=== PATIENT | male | born 1950 | race Caucasian/White ===

== ENCOUNTER 2017-01-02 23:31 | Emergency (ER) | payer OTHER ==
[2017-01-02] MEDS ORDERED: solu-MEDROL 125 MG IV ONE (23:37)
[2017-01-02] MEDS ORDERED: PROVENTIL 2.5 MG/3 ML NEB IH ONE ×2 (23:37→23:58)
[2017-01-02] MEDS ORDERED: solu-MEDROL 125 MG ONE (23:41)
[2017-01-02] MEDS ORDERED: Sodium Chloride 0.9% 1000 ML 1,000 ML ONE (23:41)
--- NOTE | 2017-01-02 23:44 | ERPHSYRPT ---
- History of Present Illness Time Seen by Provider: 01/02/17 23:34 Source: patient, EMS Exam Limitations: clinical condition Physician History: This is a 66-year-old white male with history of COPD, pneumonia, hyperlipidemia , chronic back pain. He is brought by medics in moderate respiratory distress he has CPAP started by medics and he was changed to BiPAP by our respiratory patient has diminished breath sounds and appears to be quite short of breath. He states he's been short of breath for 2-3 days he has no fevers has been coughing yellow sputum no vomiting. Past medical history includes COPD, pneumonia, hyperlipidemia, chronic back pain , Past surgical history includes hemorrhoids. ' Timing/Duration: day(s) (2-3 days) Severity of Dyspnea-Max: moderate Severity of Dyspnea-Current: moderate Possible Cause: frequent episodes Modifying Factors: Improves With: nothing, other (patient given DuoNeb treatment andslbuterol treatment by medics) Associated Symptoms: constant, cough, wheezing, weakness, productive cough, No chest pain/discomfort, No edema, No fever, No insomnia, No loss of appetite, No lightheadedness, No ankle swelling, No chills, No hemoptysis, No calf pain, No dizziness, No heaviness, No heart racing, No lightheadedness, No leg swelling, No muscle spasms feet, No muscle spasms hands, No painful breathing, No sweating , No tightness, No tingling face, No tingling hands Allergies/Adverse Reactions: No Known Drug Allergies Allergy (Verified 01/26/16 12:56) Home Medications: Albuterol 2.5 mg/3 ml Neb [Proventil 2.5 mg/3 ml Neb] 1 vial IH Q6H [History] Alendronate Sodium 70 mg [Fosamax 70 MG] 70 mg PO WEEKLY 11/28/14 [History ] Fluticasone/Vilanterol [Breo Ellipta 100-25 Mcg INH] 1 puff IH DAILY 11/28/14 [ History] Hydrocodone/APAP 10/325 mg [Homer 10/325 MG Tablet] 1 tab PO Q4H PRN PRN 11/28/14 [History] Ipratropium/Albuterol Sulfate [Combivent Inhaler] 2 puffs IH BID 11/28/14 [ History] Prednisone 10 mg [Deltasone 10 mg] 10 mg PO DAILY 11/28/14 [History] Roflumilast [Daliresp] 500 mcg PO DAILY 11/28/14 [History] Aspirin 81 mg DAILY 01/26/16 [History] Atorvastatin Calcium 80 mg DAILY 01/26/16 [History] Carvedilol 12.5 mg [Coreg 12.5 mg] 12.5 mg BID 01/26/16 [History] Clopidogrel Bisulfate 75 mg [PLAVIX 75 MG Tablet] 75 mg DAILY 01/26/16 [ History] PANTOPRAZOLE 40 mg Tablet [Protonix 40MG Tablet] 40 mg DAILY 01/26/16 [ History] Ramipril 5 mg [Altace 5 MG] 5 mg DAILY 01/26/16 [History] Hx Influenza Vaccination/Date Given: Yes Hx Pneumococcal Vaccination/Date Given: Yes - Review of Systems Constitutional: No Fever, No Chills Eyes: No Symptoms Ears, Nose, & Throat: No Symptoms Respiratory: Cough, Dyspnea, Wheezing Cardiac: No Chest Pain, No Edema, No Syncope Abdominal/Gastrointestinal: No Abdominal Pain, No Nausea, No Vomiting, No Diarrhea Genitourinary Symptoms: No Dysuria Musculoskeletal: No Back Pain, No Neck Pain Skin: No Symptoms Neurological: No Dizziness, No Focal Weakness, No Sensory Changes Psychological: No Symptoms Endocrine: No Symptoms All Other Systems: Reviewed and Negative - Past Medical History Pertinent Past Medical History: Yes Neurological History: No Pertinent History ENT History: No Pertinent History Cardiac History: High Cholesterol Respiratory History: COPD, Pneumonia Endocrine Medical History: No Pertinent History Musculoskeletal History: No Pertinent History GI Medical History: No Pertinent History History: No Pertinent History Psycho-Social History: No Pertinent History Male Reproductive Disorders: No Pertinent History Other Medical History: CHRONIC BACK PAIN - Past Surgical History Past Surgical History: Yes Gastrointestinal: Hemorrhoidectomy - Social History Smoking Status: Former smoker Exposure to second hand smoke: Yes (OCC) Drug Use: none Patient Lives Alone: No - Nursing Vital Signs Nursing Vital Signs: Initial Vital Signs Temperature 97.1 F Temperature Source Axillary Pulse Rate 102 Respiratory Rate 22 Blood Pressure [] 91/58 - Physical Exam General Appearance: moderate distress, other (well-developed white male week moderate distress) Eye Exam: PERRL/EOMI Ears, Nose, Throat Exam: hearing grossly normal, normal ENT inspection, normal pharynx Neck Exam: normal inspection, supple Respiratory Exam: diminished breath sounds Cardiovascular/Chest Exam: normal heart sounds, regular rate/rhythm, tachycardia Abdominal/Gastrointestinal Exam: soft, No tenderness, No distention, No mass Extremity Exam: non-tender, normal range of motion, normal inspection, no calf tenderness, no pedal edema Peripheral Pulses Exam: dorsalis-pedis (R): 2+, dorsalis-pedis (L): 2+ Neurologic Exam: alert, oriented x 3, cooperative, tie layer II-XII nml as tested, sensation nml, No motor deficits Skin Exam: normal color, warm, No dry SpO2 Interpretation: borderline oxygenation (99 on 100% also% on 100% oh with his) - Course Nursing assessment & vital signs reviewed: Yes EKG Interpreted by Me: RATE (106 bpm), Sinus Tach, Other (EKG, sinus tachycardia with large amount of artifact 106 beats per minute, normal axis no acute ST or T wave changes) - Radiology Exams Chest X-ray Interpretation: Interpreted by me, Other (chest x-ray left upper lobe infiltrate, pneumonia.) - CT Exams Abdomen/Pelvis CT Interpretation: Tele-radiologist Report, Other (CT of the abdomen and pelvis : 1. CT findings most consisten with central lobular emphysema with. As discussed tuberculosis should be considered in the differential diagnosis. Recommend follow-up to resolution. 2 no pulmonary embolism 31.4 cm indeterminate left adrenal nodule (x-ray included abdomen and chest with contrast)) Ordered Tests: Active Orders 24 hr Category Date Time Status Animal Feeder STAT Care 01/02/17 23:37 Completed EKG-ER Only STAT Care 01/02/17 23:39 Active Proctor [Catheter-[place] Proctor] STAT Care 01/03/17 04:05 Active IV Insertion STAT Care 01/02/17 23:37 Completed IV Insertion-2nd Peripheral STAT Care 01/02/17 23:47 Active ABDOMEN AND PELVIS W CONTRAST [CT] Stat Exams 01/03/17 01:21 Taken CHEST 1 VIEW (PORTABLE) Stat Exams 01/02/17 23:37 Taken CHEST WITH CONTRAST [CT] Stat Exams 01/03/17 00:45 Taken ARTERIAL BLOOD GASES Urgent Lab 01/02/17 23:45 Completed BLOOD CULTURE Stat Lab 01/02/17 23:56 Stop Req CBC W DIFF Stat Lab 01/02/17 23:55 Completed CMP Stat Lab 01/02/17 23:55 Completed CULTURE,URINE Stat Lab 01/03/17 01:54 Received D-DIMER QUANTITATION Stat Lab 01/02/17 23:55 Completed Lactic Acid Urgent Lab 01/02/17 23:45 Completed Manual Differential NC Stat Lab 01/02/17 23:55 Completed NT PRO BNP Stat Lab 01/02/17 23:55 Completed TROPONIN Stat Lab 01/02/17 23:55 Completed UA W/ MICROSCOPIC Stat Lab 01/03/17 01:54 Completed BiPap/CPAP Assessment ROUTINE RT 01/02/17 23:37 Completed Respiratory Nebulizer STAT RT 01/02/17 23:38 Completed Respiratory Nebulizer STAT RT 01/03/17 03:24 Completed Medication Summary Generic Name Dose Route Start Last Admin Trade Name Freq PRN Reason Stop Dose Admin Dopamine HCl/Dextrose 250 mls @ 01/03/17 02:33 Dopamine 400 Mg/D5w 250ml Premix IV 02/02/17 02:32 .Q0M PRN SEVERE HYPOTENSION Protocol 5 MCG/KG/MIN Discontinued Medications Generic Name Dose Route Start Last Admin Trade Name Freq PRN Reason Stop Dose Admin Albuterol Sulfate 2.5 mg 01/02/17 23:37 01/02/17 23:58 Proventil 2.5 Mg/3 Ml Neb IH 01/02/17 23:38 2.5 mg STAT ONE Administration Albuterol Sulfate Confirm 01/02/17 23:58 Proventil 2.5 Mg/3 Ml Neb Administered 01/02/17 23:59 Dose 2.5 mg IH .STK-MED ONE Albuterol/Ipratropium 3 ml 01/03/17 03:24 01/03/17 03:25 Duoneb 0.5-3 Mg/3 Ml Neb IH 01/03/17 03:25 3 ml STAT ONE Administration Albuterol/Ipratropium Confirm 01/03/17 03:24 Duoneb 0.5-3 Mg/3 Ml Neb Administered 01/03/17 03:25 Dose 3 ml IH .STK-MED ONE Sodium Chloride 1,000 mls @ 100 mls/hr 01/02/17 23:45 01/02/17 23:45 Sodium Chloride 0.9% 1000 Ml IV 02/01/17 23:44 100 mls/hr .Q10H LUCAS Administration Ceftriaxone Sodium/Dextrose 50 mls @ 100 mls/hr 01/03/17 00:41 01/03/17 00:46 Rocephin 1 Gm-D5w 50 Ml Bag IV 01/03/17 01:10 100 mls/hr STAT ONE Administration Ceftriaxone Sodium/Dextrose Confirm 01/03/17 00:43 Rocephin 1 Gm-D5w 50 Ml Bag Administered 01/03/17 00:44 Dose 50 mls @ ud IV .STK-MED ONE Dopamine HCl/Dextrose 250 mls @ 01/03/17 02:22 Dopamine 400 Mg/D5w 250ml Premix IV 02/02/17 02:21 .Q0M PRN SEVERE HYPOTENSION Protocol 5 MCG/KG/MIN Sodium Chloride 1,000 mls @ 100 mls/hr 01/03/17 02:45 Sodium Chloride 0.9% 1000 Ml IV 02/02/17 02:44 .Q10H LUCAS Dopamine HCl/Dextrose Confirm 01/03/17 02:26 Dopamine 400 Mg/D5w 250ml Premix Administered 01/03/17 02:27 Dose 250 mls @ ud IV .STK-MED ONE Sodium Chloride 500 mls @ 999 mls/hr 01/03/17 02:32 01/03/17 02:59 Sodium Chloride 0.9% 1000 Ml IV 01/03/17 03:02 999 mls/hr .Q31M STA Administration Sodium Chloride Confirm 01/02/17 23:41 Sodium Chloride 0.9% 1000 Ml Administered 01/02/17 23:42 Dose 1,000 mls @ ud .ROUTE .STK-MED ONE Sodium Chloride Confirm 01/03/17 02:58 Sodium Chloride 0.9% 1000 Ml Administered 01/03/17 02:59 Dose 1,000 mls @ ud .ROUTE .STK-MED ONE Methylprednisolone Sodium Succinate 125 mg 01/02/17 23:37 01/02/17 23:45 Solu-Medrol 125 Mg IV 01/02/17 23:38 125 mg STAT ONE Administration Methylprednisolone Sodium Succinate Confirm 01/02/17 23:41 Solu-Medrol 125 Mg Administered 01/02/17 23:42 Dose 125 mg .ROUTE .STK-MED ONE Lab/Rad Data: Laboratory Result Diagrams 01/02/17 23:55 01/02/17 23:55 Laboratory Results 01/03/17 01/02/17 01/02/17 Range/Units 01:54 23:55 23:55 WBC (4.0-10.5) K/mm3 RBC (4.1-5.6) M/mm3 Hgb (12.5-18.0) gm/dl Hct (42-50) % MCV (78-100) fl MCH (26-32) pg MCHC (32-36) g/dl RDW (11.5-14.0) % Plt Count (150-450) K/mm3 MPV (6-9.5) fl Segmented Neutrophils (36.-66.) % Band Neutrophils (0.0-2.0) % Lymphocytes (Manual) (24-44) % Monocytes (Manual) (0.0-12.0) % Metamyelocytes % Differential Comment Toxic Granulation Dohle Bodies Platelet Estimate (NORMAL) D-Dimer 1.420 H* (0.00-0.49) mg/L Puncture Site pCO2 (35-45) mmHg pO2 (75-100) mmHg Base Excess (-2.0-2.0) O2 Saturation (94-100) g/dF ABG pH (7.35-7.45) ABG HCO3 (22-28) ABG O2 Sat (Measured) (95-100) % Tomas Test A-a Gradient a/A Ratio Hemoglobin Carboxyhemoglobin (0.0-6.9) % THgb Methemoglobin (1.4-1.5) % Potassium 4.3 (3.5-5.1) Temperature C POC O2 Flow Rate % Vent Mode Inspiratory BiPAP Expiratory BiPAP Sodium 140 (136-145) mEq/L Chloride 103 (98-107) mEq/L Carbon Dioxide 25.9 (21-32) mEq/L Anion Gap 15.1 H (5-15) MEQ/L BUN 25 H (9-20) mg/dL Creatinine 1.05 (0.55-1.30) mg/dl Estimated GFR > 60 ML/MIN Glucose 136 H (70-110) MG/DL Lactic Acid (0.4-2.0) Calcium 8.6 (8.5-10.1) mg/dL Total Bilirubin 0.8 (0.2-1.0) mg/dL AST 36 (15-37) U/L ALT 10 L (12-78) U/L Alkaline Phosphatase 203 H (46-116) U/L Troponin I < 0.017 (0.000-0.056) ng/ml NT-Pro-B Natriuret Pep 970 H (0-125) pg/ml Serum Total Protein 7.1 (6.4-8.2) gm/dL Albumin 2.4 L (3.4-5.0) g/dL Ur Collection Type CLEAN CATCH Urine Color DARK YELLOW (YELLOW) Urine Appearance SLIGHTLY CLOUDY (CLEAR) Urine pH 5.5 (5-6) Ur Specific [place] 1.025 (1.005-1.025) Urine Protein 100 (Negative) Urine Glucose (UA) NEGATIVE (NEGATIVE) mg/dL Urine Ketones NEGATIVE (NEGATIVE) Urine Nitrite NEGATIVE (NEGATIVE) Urine Bilirubin SMALL (NEGATIVE) Urine Urobilinogen 4 (0-1) mg/dL Urine WBC (Auto) NEGATIVE (NEGATIVE) Urine RBC (Auto) NEGATIVE (0-5) Indra/ul Urine Microscopic RBC 2-5 (0-2) /HPF Urine Microscopic WBC 5-10 (0-5) /HPF Ur Epithelial Cells MODERATE (FEW) /HPF Urine Bacteria MODERATE (NEGATIVE) /HPF Urine Casts (NEGATIVE) /LPF Hyaline Casts 0-2 (0-2) /LPF Urine Mucus MODERATE (NEGATIVE) /HPF Specimen Received 01/03/17 0200 01/02/17 01/02/17 Range/Units 23:55 23:45 WBC 23.1 H (4.0-10.5) K/mm3 RBC 4.10 (4.1-5.6) M/mm3 Hgb 11.6 L (12.5-18.0) gm/dl Hct 37.4 L (42-50) % MCV 91.2 (78-100) fl MCH 28.2 (26-32) pg MCHC 31.0 L (32-36) g/dl RDW 15.2 H (11.5-14.0) % Plt Count 259 (150-450) K/mm3 MPV 10.7 H (6-9.5) fl Segmented Neutrophils 58 (36.-66.) % Band Neutrophils 37 H (0.0-2.0) % Lymphocytes (Manual) 2 L (24-44) % Monocytes (Manual) 1 (0.0-12.0) % Metamyelocytes 2 % Differential Comment NORMAL Toxic Granulation 1+ Dohle Bodies 2+ Platelet Estimate NORMAL (NORMAL) D-Dimer (0.00-0.49) mg/L Puncture Site RIGHT RADIAL pCO2 57 H (35-45) mmHg pO2 307 H* (75-100) mmHg Base Excess -1.5 (-2.0-2.0) O2 Saturation 95.3 (94-100) g/dF ABG pH 7.27 L (7.35-7.45) ABG HCO3 26.2 (22-28) ABG O2 Sat (Measured) 97.6 (95-100) % Tomas Test YES A-a Gradient 335 a/A Ratio 0.48 Hemoglobin 11.6 Carboxyhemoglobin 1.7 (0.0-6.9) % THgb Methemoglobin 0.8 L (1.4-1.5) % Potassium 4.2 (3.5-5.1) Temperature 37.0 C POC O2 Flow Rate 100 % Vent Mode BiPAP Inspiratory BiPAP 16 Expiratory BiPAP 6 Sodium (136-145) mEq/L Chloride (98-107) mEq/L Carbon Dioxide (21-32) mEq/L Anion Gap (5-15) MEQ/L BUN (9-20) mg/dL Creatinine (0.55-1.30) mg/dl Estimated GFR ML/MIN Glucose (70-110) MG/DL Lactic Acid 0.9 (0.4-2.0) Calcium (8.5-10.1) mg/dL Total Bilirubin (0.2-1.0) mg/dL AST (15-37) U/L ALT (12-78) U/L Alkaline Phosphatase (46-116) U/L Troponin I (0.000-0.056) ng/ml NT-Pro-B Natriuret Pep (0-125) pg/ml Serum Total Protein (6.4-8.2) gm/dL Albumin (3.4-5.0) g/dL Ur Collection Type Urine Color (YELLOW) Urine Appearance (CLEAR) Urine pH (5-6) Ur Specific [place] (1.005-1.025) Urine Protein (Negative) Urine Glucose (UA) (NEGATIVE) mg/dL Urine Ketones (NEGATIVE) Urine Nitrite (NEGATIVE) Urine Bilirubin (NEGATIVE) Urine Urobilinogen (0-1) mg/dL Urine WBC (Auto) (NEGATIVE) Urine RBC (Auto) (0-5) Indra/ul Urine Microscopic RBC (0-2) /HPF Urine Microscopic WBC (0-5) /HPF Ur Epithelial Cells (FEW) /HPF Urine Bacteria (NEGATIVE) /HPF Urine Casts (NEGATIVE) /LPF Hyaline Casts (0-2) /LPF Urine Mucus (NEGATIVE) /HPF Specimen Received - Progress Progress: improved Air Movement: fair Progress Note: 01/03/17 01:22 66-year-old white male who arrives in moderate distress with shortness of breath no decreased breath sounds he states he has been short of breath for 2-3 days he has been coughing yellow sputum no fevers. He was noted to have pulse ox of the 70s when medics saw him at home patient arrives very weak, he had a CT and place placed by the medics which was changed to BiPAP by the respiratory therapist. Patient has been out running of blood pressures which have been low the last check was 83 systolic. He is noted to have BNP of a over 900. Patient is given careful IV fluids lactate is within normal limits. Patient did have a white count of 25,000. As patient appears to be improving after Solu-Medrol breathing treatments he has begun to complain of abdominal pain he is also noted to have an elevated d- dimer he has a pneumonia on chest x-ray. Will go ahead and obtain CTA of the chest also add on the abdominal CT secondary to his abdominal pain complaints which have been made more apparent as he improves with his respiratory condition. Will await CT results of chest and abdomen. Patient has received Rocephin 1 g IV cultures have been obtained awaiting urinalysis .Patient's . 01/03/17 03:23 CT of the chest and abdomen with contrast impression: CT findings most consistent with severe centrilobular emphysema and associated left upper lobe pneumonia. As discussed tuberculosis should be considered in the differential diagnosis. Recommend follow-up to resolution. 2. No pulmonary embolism 3. 1.4 cm indeterminate left adrenal nodule. Patient's blood pressure was as low as 73 he was given IV normal saline given a dopamine drip blood pressure at time of dictation 88. Heart rate is 97. Case was discussed with Dr. Coats. 01/03/17 03:32 The case was discussed with Dr. Coats he was somewhat concerned over the patient's pressure however the patient appeared to be improving after receiving dopamine and IV fluids and he had planned to accept the patient Unfortunately, when preparing to place the patient on the ICU it was noted that patient did not have a negative pressure room available and he had findings on his CT scan that were concerning for possible TB. Therefore [facility] call was contacted I talked with Josefina who was nurse practitioner on-call for Dr. Mcmahon, the accepting physician the case was discussed with her and she accepted the patient for transfer to [facility] after ensuring that a negative pressure bed was available. Patient was actually looking much better although his pressure went as low as 73 systolic he was actually sitting up banging on the side rails demanding water while waiting for his CT of the abdomen to be read patient was given in his water has demanded his in his CT results are available Patient has received IV normal saline, dopamine, albuterol, Solu-Medrol while in the emergency room. Will transfer patient is in his bed is made available 01/03/17 03:53 Laboratory was contacted and requested to obtain AN oc QUANTIFERON TEST. Sputum was not immediately available Blood Culture(s) Obtained: Yes - Departure Time of Disposition: 03:51 Departure Disposition: Transfer ([facility] Dr. Mcmahon) Clinical Impression: COPD with exacerbation, Hypoxia, rule out cavitary lesions on CT chest Pneumonia Qualifiers: Pneumonia type: due to unspecified organism Laterality: left Lung location: upper lobe of lung Qualified Code(s): J18.1 - Lobar pneumonia, unspecified organism Hypotension Qualifiers: Hypotension type: unspecified hypotension type Qualified Code(s): I95.9 - Hypotension, unspecified Condition: Fair Critical Care Time: Yes Critical Care Time(excluding separately billable procedures): 75-104 minutes Referrals: LUL COATS [Primary Care Provider] - Instructions: Chronic Obstructive Pulmonary Disease
[2017-01-02] MEDS ORDERED: Sodium Chloride 0.9% 1000 ML 1,000 ML IV SCH (23:45)
[2017-01-02 23:48] LABS: A-aADO2 335; ALLEN TEST OK? YES; ARTERIAL BLD GAS O2 SATURATION 97.6 % (95-100); ARTERIAL BLOOD GAS BASE EXCESS -1.5 (-2.0-2.0); ARTERIAL BLOOD GAS FIO2 100 %; ARTERIAL BLOOD GAS PO2 307 mmHg (75-100); ARTERIAL BLOOD GAS pH 7.27 (7.35-7.45); BIPAP(E) 6; BIPAP(I) 16; Lactic Acid 0.9 (0.4-2.0)
[2017-01-02 23:54] LABS: Mean Cell Volume 91.2 fl (78-100); Mean Platelet Volume 10.7 fl (6-9.5); Platelet Count 259 K/mm3 (150-450); Red Cell Distribution Width 15.2 % (11.5-14.0); White Blood Count 23.1 K/mm3 (4.0-10.5)
[2017-01-02 23:57] LABS: Mean Corpuscular Hemoglobin 28.2 pg (26-32)
[2017-01-03 00:20] LABS: ALBUMIN 2.4 g/dL (3.4-5.0); ALKALINE PHOSPHATASE 203 U/L (46-116); ANION GAP 15.1 MEQ/L (5-15); BILIRUBIN,TOTAL 0.8 mg/dL (0.2-1.0); BLOOD UREA NITROGEN 25 mg/dL (9-20); CHLORIDE 103 mEq/L (98-107); Carbon Dioxide 25.9 mEq/L (21-32); Glucose 136 MG/DL (70-110); Potassium 4.3 mEq/L (3.5-5.1); SGOT/AST 36 U/L (15-37); SGPT/ALT 10 U/L (12-78); SODIUM 140 mEq/L (136-145); Total Protein 7.1 gm/dL (6.4-8.2)
[2017-01-03 00:24] LABS: BAND 37 % (0.0-2.0); Metamyelocyte 2 %; Total Cells Counted 100
[2017-01-03 00:25] LABS: Platelet Estimate NORMAL (NORMAL)
[2017-01-03 00:26] LABS: Dohle Bodies 2+; Toxic Granulation 1+
[2017-01-03 00:29] LABS: TROPONIN < 0.017 ng/ml (0.000-0.056)
[2017-01-03] MEDS ORDERED: ROCEPHIN 1 Gm-D5w 50 ml Bag** 50 ML IV ONE ×2 (00:41→00:43)
[2017-01-03] MEDS ORDERED: Dopamine 400 MG/D5W 250ML PREMIX 250 ML IV PRN ×2 (02:22→02:33)
[2017-01-03] MEDS ORDERED: Dopamine 400 MG/D5W 250ML PREMIX 250 ML IV ONE (02:26)
[2017-01-03 02:27] LABS: Bacteria MODERATE /HPF (NEGATIVE); COMPLETE URINE MICROSCOPIC? YES; Collection Type CLEAN CATCH; Epithelial Cells MODERATE /HPF (FEW); Mucus MODERATE /HPF (NEGATIVE); Ph 5.5 (5-6)
[2017-01-03 02:28] LABS: Hyaline Casts 0-2 /LPF (0-2)
[2017-01-03] MEDS ORDERED: Sodium Chloride 0.9% 1000 ML 1,000 ML IV SCH (02:45)
[2017-01-03] MEDS ORDERED: Sodium Chloride 0.9% 1000 ML 1,000 ML ONE (02:58)
[2017-01-03] MEDS ORDERED: DUONEB 0.5-3 MG/3 ml Neb IH ONE ×2 (03:24)
[2017-01-03 03:29] VITALS: O2SAT 99
[2017-01-03 04:05] VITALS: BP 91/58; PULSE 102
--- NOTE | 2017-01-03 09:35 | XRAY ---
Indication: Short of breath. Elevated d-dimer. Multiple contiguous axial images obtained through the chest using 80 cc Isovue 370 contrast and PE protocol. Comparison: None There is satisfactory opacification of the pulmonary arteries to include the lobar and segmental branches. No filling defect or pulmonary embolus. Aorta is normal in course and caliber without aneurysm/dissection. Heart is not enlarged. Tiny distal right paratracheal and left hilar calcified nodes. A few centimeter/subcentimeter mediastinal lymph nodes, largest AP window. No pathologic mediastinal/hilar lymphadenopathy. Examination of the lung parenchyma demonstrates diffuse extensive bilateral pulmonary emphysema. In the left upper lobe, there are patchy anterior medial interstitial alveolar opacities, several appearing consolidative/organizing with occasional fluid leveling. Minimal left-sided dependent atelectasis. No effusion. Left lower lobe calcified granuloma. Bony thorax intact. Small subcutaneous lipomas just anterior to the right eighth/ninth ribs, largest measuring 2.[address] abdomen reported separately. Impression: 1. Negative for pulmonary embolus. 2. Left upper lobe patchy interstitial alveolar opacities with multifocal areas of consolidation and occasional fluid leveling favoring organizing pneumonia. Primary tuberculosis less likely as there is no pathologic lymphadenopathy. However in the right clinical setting, reactivation tuberculosis can have a similar CT appearance. 3. Extensive pulmonary emphysema. 4. Incidental right chest wall subcutaneous lipomas. Comment: Preliminary interpretation was made by [facility]. No critical discrepancy. CT DI 16.67
--- NOTE | 2017-01-03 09:40 | XRAY ---
Indication: Short of breath. Elevated d-dimer. Multiple contiguous axial images obtained through the abdomen and pelvis using 80 cc Isovue 370 contrast only. Comparison: January 26, 2016. CT chest reported separately. Stomach is distended with food/fluid. Several mid abdominal small bowel loops are now moderately fluid distended with wall thickening/enhancement. Also several pelvic small bowel loops are also mildly fluid distended with some fluid leveling. Findings either ileus versus enteritis. There is moderate diffuse scattered colonic fecal debris throughout, more than before. No free fluid/air. Stable enlarged prostate gland. Remaining liver, gallbladder, pancreas, spleen, adrenal glands, kidneys, ureters, and bladder appear unremarkable. There remains minimal aortoiliac calcifications. No AAA or pathologic retroperitoneal lymphadenopathy. Osseous structures intact again with moderate degenerative changes throughout the spine. Impression: 1. New fluid distended small bowel loops with wall thickening/enhancement and some fluid leveling, ileus versus enteritis. 2. Worsening fecal stasis without obstruction. 3. Stable enlarged prostate gland. Comment: Preliminary interpretation was made by C. Small bowel findings are reported and not felt to be critical. CT DI 16.67
--- NOTE | 2017-01-03 09:42 | XRAY ---
Indication: Short of breath. Comparison: January 26, 2016. Portable chest again demonstrates COPD with new left upper lobe interstitial alveolar opacities further detailed on same day CT chest study. Remaining heart, lungs, and bony thorax unremarkable.
[2017-01-05 11:19] LABS: Mitogen-NIL 0.41 IU/mL (>=0.50); TB-NIL 0.02 IU/mL (<=0.34); TuberculosisScr-Qferon-Gold Indeterminate
== END 2017-01-03 04:35 | disposition short-term general hospital (02) ==
LOC: ED 23:31
DX: J18.1 Lobar pneumonia, unspecified organism (principal); I95.9 Hypotension, unspecified; J44.1 Chronic obstructive pulmonary disease with (acute) exacerbation; R09.02 Hypoxemia; E78.5 Hyperlipidemia, unspecified; Z87.01 Personal history of pneumonia (recurrent); R05 Cough; R06.2 Wheezing; Z79.899 Other long term (current) drug therapy
CPT/HCPCS: 36000; 36415; 36600; 51702; 71010; 71260; 74177; 80053; 81000; 82375; 82803; 83605; 83880; 84484; 85025; 85379; 86480; 87040; 87086; 93005; 93041; 94002; 94640; 96360; 96361; 96365; 96368; 96374; 99285; 99291; 99292; J0696; J1265; J2930; A9270-GY

== ENCOUNTER 2017-11-06 04:28 | Inpatient (IN) | payer OTHER ==
[2017-11-06] MEDS ORDERED: PROVENTIL 2.5 MG/3 ML NEB IH ONE (04:40)
[2017-11-06] MEDS ORDERED: Xopenex 1.25 MG/0.5 ML UD NEBULE IH ONE ×2 (04:41)
[2017-11-06] MEDS ORDERED: Sodium Chloride 3 ML UD NEBULES IH ONE (04:41)
[2017-11-06] MEDS ORDERED: Lactated Ringers 1,000 ML IV ONE ×4 (04:42→06:30)
[2017-11-06] MEDS ORDERED: Zithromax 500 MG/ 250 ML NaCl Premix 500 MG/250 ML IVPB IV STA (04:44)
[2017-11-06] MEDS ORDERED: ROCEPHIN 1 Gm-D5w 50 ml Bag** 1 G/50 ML IVPB IV STA (04:44)
--- NOTE | 2017-11-06 04:47 | ERPHSYRPT ---
- History of Present Illness Time Seen by Provider: 11/06/17 04:35 Source: patient Exam Limitations: no limitations Physician History: FOR THE PAST 90 MINUTES PT HAS HAD SHORTNESS OF AIR, COUGH PRODUCTIVE OF YELLOW PHLEGM AND A SUBJECTIVE FEVER. PT DENIES NAUSEA, VOMITING, ABDOMINAL PAIN, CHEST PAIN. Allergies/Adverse Reactions: No Known Drug Allergies Allergy (Verified 01/26/16 12:56) Home Medications: Albuterol 2.5 mg/3 ml Neb [Proventil 2.5 mg/3 ml Neb] 1 vial IH Q6H [History] Alendronate Sodium 70 mg [Fosamax 70 MG] 70 mg PO WEEKLY 11/28/14 [History ] Fluticasone/Vilanterol [Breo Ellipta 100-25 Mcg INH] 1 puff IH DAILY 11/28/14 [ History] Hydrocodone/APAP 10/325 mg [Berwick 10/325 MG Tablet] 1 tab PO Q4H PRN PRN 11/28/14 [History] Ipratropium/Albuterol Sulfate [Combivent Inhaler] 2 puffs IH BID 11/28/14 [ History] Prednisone 10 mg [Deltasone 10 mg] 10 mg PO DAILY 11/28/14 [History] Roflumilast [Daliresp] 500 mcg PO DAILY 11/28/14 [History] Aspirin 81 mg DAILY 01/26/16 [History] Atorvastatin Calcium 80 mg DAILY 01/26/16 [History] Carvedilol 12.5 mg [Coreg 12.5 mg] 12.5 mg BID 01/26/16 [History] Clopidogrel Bisulfate 75 mg [PLAVIX 75 MG Tablet] 75 mg DAILY 01/26/16 [ History] PANTOPRAZOLE 40 mg Tablet [Protonix 40MG Tablet] 40 mg DAILY 01/26/16 [ History] Ramipril 5 mg [Altace 5 MG] 5 mg DAILY 01/26/16 [History] Hx Tetanus, Diphtheria Vaccination/Date Given: Yes Hx Influenza Vaccination/Date Given: Yes Hx Pneumococcal Vaccination/Date Given: Yes - Review of Systems Constitutional: Fever Respiratory: Cough, Dyspnea Cardiac: No Chest Pain Abdominal/Gastrointestinal: No Abdominal Pain, No Nausea, No Vomiting Endocrine: No Excessive Sweating All Other Systems: Reviewed and Negative (`) - Past Medical History Pertinent Past Medical History: Yes Neurological History: No Pertinent History ENT History: No Pertinent History Cardiac History: High Cholesterol Respiratory History: COPD, Pneumonia Endocrine Medical History: No Pertinent History Musculoskeletal History: No Pertinent History GI Medical History: No Pertinent History History: No Pertinent History Psycho-Social History: No Pertinent History Male Reproductive Disorders: No Pertinent History Other Medical History: CHRONIC BACK PAIN - Past Surgical History Past Surgical History: Yes Gastrointestinal: Hemorrhoidectomy - Social History Smoking Status: Former smoker How long have you smoked: 50yrs Exposure to second hand smoke: Yes (OCC) Drug Use: none Patient Lives Alone: No - Nursing Vital Signs Nursing Vital Signs: Initial Vital Signs Temperature 97.4 F 11/06/17 04:39 Pulse Rate 134 H 11/06/17 04:39 Respiratory Rate 28 H 11/06/17 04:39 Blood Pressure 182/93 11/06/17 04:39 O2 Sat by Pulse Oximetry 93 L 11/06/17 04:39 Pain Scale Pain Intensity 0 - Physical Exam General Appearance: moderate distress, alert Eye Exam: PERRL/EOMI Ears, Nose, Throat Exam: dry mucous membranes, pharyngeal erythema Neck Exam: normal inspection Respiratory Exam: respiratory distress, airway intact, diminished breath sounds , accessory muscle use, prolonged expirations, wheezing Cardiovascular Exam: tachycardia Gastrointestinal/Abdomen Exam: soft, normal bowel sounds Back Exam: normal range of motion Extremity Exam: normal inspection, No pedal edema Neurologic Exam: alert, cooperative Skin Exam: warm, dry SpO2 Interpretation: normal SpO2: 96 Oxygen Delivery: Non-rebreather - Course Nursing assessment & vital signs reviewed: Yes EKG Interpreted by Me: RATE ([id number]), Sinus Tach, NORMAL AXIS, Non-specific ST Changes - Radiology Exams Chest X-ray Interpretation: Interpreted by me (PNEUMONIA) Ordered Tests: Active Orders 24 hr Category Date Time Status Rehabilitation Construction Specialist STAT Care 11/06/17 04:42 Active EKG-ER Only STAT Care 11/06/17 04:41 Active Pulse Oximetry (ED) STAT Care 11/06/17 04:41 Active CHEST 1 VIEW (PORTABLE) Stat Exams 11/06/17 04:42 Taken ARTERIAL BLOOD GASES Stat Lab 11/06/17 05:20 Completed BLOOD CULTURE Stat Lab 11/06/17 05:20 Received CBC W DIFF Stat Lab 11/06/17 05:00 Completed CMP Stat Lab 11/06/17 05:00 Completed CULTURE, THROAT Stat Lab 11/06/17 05:00 Received CULTURE,SPUTUM Stat Lab 11/06/17 05:15 Received D-DIMER QUANTITATION Stat Lab 11/06/17 05:00 Completed Lactic Acid Stat Lab 11/06/17 04:44 Results MAGNESIUM Stat Lab 11/06/17 05:00 Completed [place] Screen Stat Lab 11/06/17 05:00 Completed NT PRO BNP Stat Lab 11/06/17 05:00 Completed STREP SCREEN-BETA A Stat Lab 11/06/17 05:00 Completed TROPONIN Q3H Lab 11/06/17 05:00 Completed TROPONIN Q3H Lab 11/06/17 07:45 Ordered TROPONIN Q3H Lab 11/06/17 10:45 Ordered TROPONIN Q3H Lab 11/06/17 13:45 Ordered TROPONIN Q3H Lab 11/06/17 16:45 Ordered UA W/ MICROSCOPIC Stat Lab 11/06/17 06:38 Completed Urine Triage Profile Stat Lab 11/06/17 06:38 Received neb [Respiratory Nebulizer] STAT RT 11/06/17 04:47 Completed Medication Summary Generic Name Dose Route Start Last Admin Trade Name Freq PRN Reason Stop Dose Admin Magnesium Sulfate/Dextrose 100 mls @ 100 mls/hr 11/06/17 04:45 11/06/17 04:55 Magnesium 1 Gm / 100 Ml D5w IV 11/06/17 06:44 100 mls/hr Q1H LUCAS Administration Discontinued Medications Generic Name Dose Route Start Last Admin Trade Name Freq PRN Reason Stop Dose Admin Albuterol Sulfate Confirm 11/06/17 04:40 Proventil 2.5 Mg/3 Ml Neb Administered 11/06/17 04:41 Dose 2.5 mg IH .STK-MED ONE Lactated Ringer's Confirm 11/06/17 04:42 Lactated Ringers Administered 11/06/17 04:43 Dose 1,000 mls @ ud IV .STK-MED ONE Lactated Ringer's 1,000 mls @ 999 mls/hr 11/06/17 04:45 11/06/17 04:55 Lactated Ringers IV 11/06/17 05:45 999 mls/hr .Q1H1M ONE Administration Ceftriaxone Sodium/Dextrose 1 g in 50 mls @ 100 mls/hr 11/06/17 04:44 04:55 Rocephin 1 Gm-D5w 50 Ml Bag IV 11/06/17 05:13 100 mls/hr STAT STA Administration Azithromycin 500 mg in 250 mls @ 250 mls/hr 11/06/17 04:44 11/06/17 05:56 Zithromax 500 Mg/ 250 Ml Nacl Premix IV 11/06/17 05:43 250 mls/hr STAT STA Administration Ceftriaxone Sodium/Dextrose Confirm 11/06/17 04:49 Rocephin 1 Gm-D5w 50 Ml Bag Administered 11/06/17 04:50 Dose 1 g in 50 mls @ ud IV .STK-MED ONE Azithromycin Confirm 11/06/17 04:52 Zithromax 500 Mg/ 250 Ml Nacl Premix Administered 11/06/17 04:53 Dose 500 mg in 250 mls @ ud IV .STK-MED ONE Lactated Ringer's 1,000 mls @ 999 mls/hr 11/06/17 05:29 11/06/17 06:31 Lactated Ringers IV 11/06/17 06:29 999 mls/hr .Q1H1M ONE Administration Lactated Ringer's Confirm 11/06/17 06:30 Lactated Ringers Administered 11/06/17 06:31 Dose 1,000 mls @ ud IV .STK-MED ONE Levalbuterol HCl Confirm 11/06/17 04:41 Xopenex 1.25 Mg/0.5 Ml Ud Nebule Administered 11/06/17 04:42 Dose 1.25 mg IH .STK-MED ONE Levalbuterol HCl 1.25 mg 11/06/17 04:41 11/06/17 04:47 Xopenex 1.25 Mg/0.5 Ml Ud Nebule IH 11/06/17 04:42 1.25 mg STAT ONE Administration Sodium Chloride Confirm 11/06/17 04:41 Sodium Chloride 3 Ml Ud Nebules Administered 11/06/17 04:42 Dose 3 ml IH .STK-MED ONE Lab/Rad Data: Laboratory Result Diagrams 11/06/17 05:00 11/06/17 05:00 Laboratory Results 11/06/17 11/06/17 11/06/17 Range/Units 06:38 05:20 05:00 WBC (4.0-10.5) K/mm3 RBC (4.1-5.6) M/mm3 Hgb (12.5-18.0) gm/dl Hct (42-50) % MCV (78-100) fl MCH (26-32) pg MCHC (32-36) g/dl RDW (11.5-14.0) % Plt Count (150-450) K/mm3 MPV (6-9.5) fl Gran % (36.0-66.0) % Lymphocytes % (24.0-44.0) % Monocytes % (0.0-12.0) % Eosinophils % (0.00-5.0) % Basophils % (0.0-0.4) % Basophils # (0-0.4) D-Dimer (0-500) ng/mL Puncture Site LEFT RADIAL pCO2 46 H (35-45) mmHg pO2 64 L (75-100) mmHg Base Excess 4.6 H (-2.0-2.0) O2 Saturation 92.3 L (94-100) g/dF ABG pH 7.42 (7.35-7.45) ABG HCO3 29.8 H* (22-28) ABG O2 Sat (Measured) 95.1 (95-100) % Tomas Test YES A-a Gradient 135 a/A Ratio 0.32 Hemoglobin 11.7 Carboxyhemoglobin 1.9 (0.0-6.9) % THgb Methemoglobin 0.9 L (1.4-1.5) % Temperature 37.0 C POC O2 Flow Rate 36 % Sodium (137-145) mmol/L Potassium 3.4 L (3.5-5.1) mmol/L Chloride (98-107) mmol/L Carbon Dioxide (22-30) mmol/L Anion Gap (5-15) MEQ/L BUN (9-20) mg/dL Creatinine (0.66-1.25) mg/dL Estimated GFR ML/MIN Glucose (74-106) mg/dL Lactic Acid (0.4-2.0) Calcium (8.4-10.2) mg/dL Magnesium (1.6-2.3) mg/dL Total Bilirubin (0.2-1.3) mg/dL AST (17-59) U/L ALT (0-50) U/L Alkaline Phosphatase (38-126) U/L Troponin I (0.000-0.034) ng/mL NT-Pro-B Natriuret Pep (0-900) pg/mL Serum Total Protein (6.3-8.2) gm/dL Albumin (3.5-5.0) g/dL Ur Collection Type VOID Urine Color YELLOW (YELLOW) Urine Appearance CLEAR (CLEAR) Urine pH 5.0 (5-6) Ur Specific [place] 1.025 (1.005-1.025) Urine Protein NEGATIVE (Negative) Urine Ketones NEGATIVE (NEGATIVE) Urine Blood 5-10 (0-5) Indra/ul Urine Nitrite NEGATIVE (NEGATIVE) Urine Bilirubin NEGATIVE (NEGATIVE) Urine Urobilinogen NORMAL (0-1) mg/dL Ur Leukocyte Esterase NEGATIVE (NEGATIVE) Urine Microscopic RBC 0-2 (0-2) /HPF Urine Microscopic WBC 0-2 (0-5) /HPF Ur Epithelial Cells RARE (FEW) /HPF Urine Bacteria RARE (NEGATIVE) /HPF Urine Mucus MODERATE (NEGATIVE) /HPF Urine Culture Reflexed NO (NO) Urine Glucose NEGATIVE (NEGATIVE) mg/dL Monoscreen NEGATIVE (Negative) Influenza Type A Ag (NEGATIVE) Influenza Type B Ag (NEGATIVE) RSV (PCR) (Negative) Streptococcus Screen (Negative) Specimen Received 11/06/17 0615 11/06/17 11/06/17 11/06/17 Range/Units 05:00 05:00 05:00 WBC (4.0-10.5) K/mm3 RBC (4.1-5.6) M/mm3 Hgb (12.5-18.0) gm/dl Hct (42-50) % MCV (78-100) fl MCH (26-32) pg MCHC (32-36) g/dl RDW (11.5-14.0) % Plt Count (150-450) K/mm3 MPV (6-9.5) fl Gran % (36.0-66.0) % Lymphocytes % (24.0-44.0) % Monocytes % (0.0-12.0) % Eosinophils % (0.00-5.0) % Basophils % (0.0-0.4) % Basophils # (0-0.4) D-Dimer (0-500) ng/mL Puncture Site pCO2 (35-45) mmHg pO2 (75-100) mmHg Base Excess (-2.0-2.0) O2 Saturation (94-100) g/dF ABG pH (7.35-7.45) ABG HCO3 (22-28) ABG O2 Sat (Measured) (95-100) % Tomas Test A-a Gradient a/A Ratio Hemoglobin Carboxyhemoglobin (0.0-6.9) % THgb Methemoglobin (1.4-1.5) % Temperature C POC O2 Flow Rate % Sodium (137-145) mmol/L Potassium (3.5-5.1) mmol/L Chloride (98-107) mmol/L Carbon Dioxide (22-30) mmol/L Anion Gap (5-15) MEQ/L BUN (9-20) mg/dL Creatinine (0.66-1.25) mg/dL Estimated GFR ML/MIN Glucose (74-106) mg/dL Lactic Acid (0.4-2.0) Calcium (8.4-10.2) mg/dL Magnesium (1.6-2.3) mg/dL Total Bilirubin (0.2-1.3) mg/dL AST (17-59) U/L ALT (0-50) U/L Alkaline Phosphatase (38-126) U/L Troponin I < 0.012 (0.000-0.034) ng/mL NT-Pro-B Natriuret Pep (0-900) pg/mL Serum Total Protein (6.3-8.2) gm/dL Albumin (3.5-5.0) g/dL Ur Collection Type Urine Color (YELLOW) Urine Appearance (CLEAR) Urine pH (5-6) Ur Specific [place] (1.005-1.025) Urine Protein (Negative) Urine Ketones (NEGATIVE) Urine Blood (0-5) Indra/ul Urine Nitrite (NEGATIVE) Urine Bilirubin (NEGATIVE) Urine Urobilinogen (0-1) mg/dL Ur Leukocyte Esterase (NEGATIVE) Urine Microscopic RBC (0-2) /HPF Urine Microscopic WBC (0-5) /HPF Ur Epithelial Cells (FEW) /HPF Urine Bacteria (NEGATIVE) /HPF Urine Mucus (NEGATIVE) /HPF Urine Culture Reflexed (NO) Urine Glucose (NEGATIVE) mg/dL Monoscreen (Negative) Influenza Type A Ag NEGATIVE (NEGATIVE) Influenza Type B Ag NEGATIVE (NEGATIVE) RSV (PCR) NEGATIVE (Negative) Streptococcus Screen NEGATIVE (Negative) Specimen Received 11/06/17 11/06/17 11/06/17 Range/Units 05:00 05:00 05:00 WBC 8.3 (4.0-10.5) K/mm3 RBC 4.57 (4.1-5.6) M/mm3 Hgb 11.9 L (12.5-18.0) gm/dl Hct 38.8 L (42-50) % MCV 84.9 (78-100) fl MCH 26.0 (26-32) pg MCHC 30.7 L (32-36) g/dl RDW 15.4 H (11.5-14.0) % Plt Count 187 (150-450) K/mm3 MPV 10.4 H (6-9.5) fl Gran % 80.8 H (36.0-66.0) % Lymphocytes % 12.1 L (24.0-44.0) % Monocytes % 6.9 (0.0-12.0) % Eosinophils % 0.1 (0.00-5.0) % Basophils % 0.1 (0.0-0.4) % Basophils # 0.01 (0-0.4) D-Dimer 452.45 (0-500) ng/mL Puncture Site pCO2 (35-45) mmHg pO2 (75-100) mmHg Base Excess (-2.0-2.0) O2 Saturation (94-100) g/dF ABG pH (7.35-7.45) ABG HCO3 (22-28) ABG O2 Sat (Measured) (95-100) % Tomas Test A-a Gradient a/A Ratio Hemoglobin Carboxyhemoglobin (0.0-6.9) % THgb Methemoglobin (1.4-1.5) % Temperature C POC O2 Flow Rate % Sodium 140 (137-145) mmol/L Potassium 4.1 (3.5-5.1) mmol/L Chloride 98 (98-107) mmol/L Carbon Dioxide 32 H (22-30) mmol/L Anion Gap 14.3 (5-15) MEQ/L BUN 22 H (9-20) mg/dL Creatinine 0.77 (0.66-1.25) mg/dL Estimated GFR > 60 ML/MIN Glucose 128 H (74-106) mg/dL Lactic Acid (0.4-2.0) Calcium 8.8 (8.4-10.2) mg/dL Magnesium 2.1 (1.6-2.3) mg/dL Total Bilirubin 0.60 (0.2-1.3) mg/dL AST 23 (17-59) U/L ALT 21 (0-50) U/L Alkaline Phosphatase 86 (38-126) U/L Troponin I (0.000-0.034) ng/mL NT-Pro-B Natriuret Pep 50.8 (0-900) pg/mL Serum Total Protein 6.8 (6.3-8.2) gm/dL Albumin 3.9 (3.5-5.0) g/dL Ur Collection Type Urine Color (YELLOW) Urine Appearance (CLEAR) Urine pH (5-6) Ur Specific [place] (1.005-1.025) Urine Protein (Negative) Urine Ketones (NEGATIVE) Urine Blood (0-5) Indra/ul Urine Nitrite (NEGATIVE) Urine Bilirubin (NEGATIVE) Urine Urobilinogen (0-1) mg/dL Ur Leukocyte Esterase (NEGATIVE) Urine Microscopic RBC (0-2) /HPF Urine Microscopic WBC (0-5) /HPF Ur Epithelial Cells (FEW) /HPF Urine Bacteria (NEGATIVE) /HPF Urine Mucus (NEGATIVE) /HPF Urine Culture Reflexed (NO) Urine Glucose (NEGATIVE) mg/dL Monoscreen (Negative) Influenza Type A Ag (NEGATIVE) Influenza Type B Ag (NEGATIVE) RSV (PCR) (Negative) Streptococcus Screen (Negative) Specimen Received 11/06/17 Range/Units 04:44 WBC (4.0-10.5) K/mm3 RBC (4.1-5.6) M/mm3 Hgb (12.5-18.0) gm/dl Hct (42-50) % MCV (78-100) fl MCH (26-32) pg MCHC (32-36) g/dl RDW (11.5-14.0) % Plt Count (150-450) K/mm3 MPV (6-9.5) fl Gran % (36.0-66.0) % Lymphocytes % (24.0-44.0) % Monocytes % (0.0-12.0) % Eosinophils % (0.00-5.0) % Basophils % (0.0-0.4) % Basophils # (0-0.4) D-Dimer (0-500) ng/mL Puncture Site pCO2 (35-45) mmHg pO2 (75-100) mmHg Base Excess (-2.0-2.0) O2 Saturation (94-100) g/dF ABG pH (7.35-7.45) ABG HCO3 (22-28) ABG O2 Sat (Measured) (95-100) % Tomas Test A-a Gradient a/A Ratio Hemoglobin Carboxyhemoglobin (0.0-6.9) % THgb Methemoglobin (1.4-1.5) % Temperature C POC O2 Flow Rate % Sodium (137-145) mmol/L Potassium (3.5-5.1) mmol/L Chloride (98-107) mmol/L Carbon Dioxide (22-30) mmol/L Anion Gap (5-15) MEQ/L BUN (9-20) mg/dL Creatinine (0.66-1.25) mg/dL Estimated GFR ML/MIN Glucose (74-106) mg/dL Lactic Acid 2.1 H (0.4-2.0) Calcium (8.4-10.2) mg/dL Magnesium (1.6-2.3) mg/dL Total Bilirubin (0.2-1.3) mg/dL AST (17-59) U/L ALT (0-50) U/L Alkaline Phosphatase (38-126) U/L Troponin I (0.000-0.034) ng/mL NT-Pro-B Natriuret Pep (0-900) pg/mL Serum Total Protein (6.3-8.2) gm/dL Albumin (3.5-5.0) g/dL Ur Collection Type Urine Color (YELLOW) Urine Appearance (CLEAR) Urine pH (5-6) Ur Specific [place] (1.005-1.025) Urine Protein (Negative) Urine Ketones (NEGATIVE) Urine Blood (0-5) Indra/ul Urine Nitrite (NEGATIVE) Urine Bilirubin (NEGATIVE) Urine Urobilinogen (0-1) mg/dL Ur Leukocyte Esterase (NEGATIVE) Urine Microscopic RBC (0-2) /HPF Urine Microscopic WBC (0-5) /HPF Ur Epithelial Cells (FEW) /HPF Urine Bacteria (NEGATIVE) /HPF Urine Mucus (NEGATIVE) /HPF Urine Culture Reflexed (NO) Urine Glucose (NEGATIVE) mg/dL Monoscreen (Negative) Influenza Type A Ag (NEGATIVE) Influenza Type B Ag (NEGATIVE) RSV (PCR) (Negative) Streptococcus Screen (Negative) Specimen Received - Progress Discussed with : Jorge L (OBS - [id number]) - Departure Time of Disposition: 06:53 Departure Disposition: Observation Clinical Impression: ACUTE RESPIRATORY FAILURE, PNEUMONIA, DEHYDRATION, ELEVATED LACTIC ACID, TACHYCARDIA, COPD Condition: Stable Critical Care Time: Yes Critical Care Time(excluding separately billable procedures): 30-74 minutes Referrals: LUL CARL [Primary Care Provider] -
[2017-11-06] MEDS ORDERED: ROCEPHIN 1 Gm-D5w 50 ml Bag** 1 G/50 ML IVPB IV ONE (04:49)
[2017-11-06] MEDS ORDERED: Zithromax 500 MG/ 250 ML NaCl Premix 500 MG/250 ML IVPB IV ONE (04:52)
[2017-11-06] MEDS: Magnesium 1 Gm / 100 Ml D5W*** 100 ML IV SCH ×2 (04:55→08:54)
[2017-11-06 05:07] LABS: Lactic Acid 2.1 (0.4-2.0)
[2017-11-06 05:22] LABS: A-aADO2 135; ABG HEMOGLOBIN 11.7; ABG POTASSIUM 3.4 (3.5-5.1); ABG SITE LEFT RADIAL; ALLEN TEST OK? YES; ARTERIAL BLD GAS O2 SATURATION 95.1 % (95-100); ARTERIAL BLOOD GAS BASE EXCESS 4.6 (-2.0-2.0); ARTERIAL BLOOD GAS FIO2 36 %; ARTERIAL BLOOD GAS PCO2 46 mmHg (35-45); ARTERIAL BLOOD GAS PO2 64 mmHg (75-100); ARTERIAL BLOOD GAS pH 7.42 (7.35-7.45); CARBOXYHEMOGLOBIN 1.9 % THgb (0.0-6.9); HCO3- 29.8 (22-28); HGB O2 SAT 92.3 g/dF (94-100); Methhemoglobin 0.9 % (1.4-1.5); paO2 pAO1 0.32
[2017-11-06 05:29] LABS: BASOPHIL % 0.1 % (0.0-0.4); Basophil (Absolute #) 0.01 (0-0.4); Eosinophil % 0.1 % (0.00-5.0); Eosinophil (Absolute #) 0.01 (0-0.5); Granulocyte Absolute (ANC) 6.72 (1.4-6.9); Granulocytes % 80.8 % (36.0-66.0); Hematocrit 38.8 % (42-50); Hemoglobin 11.9 gm/dl (12.5-18.0); Lymphocyte (Absolute #) 1.01 (1.0-4.6); Lymphocytes % 12.1 % (24.0-44.0); Mean Cell Volume 84.9 fl (78-100); Mean Corpuscular Hgb Concent. 30.7 g/dl (32-36); Mean Platelet Volume 10.4 fl (6-9.5); Monocyte (Absolute #) 0.57 (0.0-1.3); Monocytes % 6.9 % (0.0-12.0); Platelet Count 187 K/mm3 (150-450); Red Blood Count 4.57 M/mm3 (4.1-5.6); Red Cell Distribution Width 15.4 % (11.5-14.0); White Blood Count 8.3 K/mm3 (4.0-10.5)
[2017-11-06 05:46] LABS: ALBUMIN 3.9 g/dL (3.5-5.0); ALKALINE PHOSPHATASE 86 U/L (38-126); ANION GAP 14.3 MEQ/L (5-15); BLOOD UREA NITROGEN 22 mg/dL (9-20); CHLORIDE 98 mmol/L (98-107); Calcium 8.8 mg/dL (8.4-10.2); Carbon Dioxide 32 mmol/L (22-30); Creatinine 1 0.77 mg/dL (0.66-1.25); Glucose 128 mg/dL (74-106); Potassium 4.1 mmol/L (3.5-5.1); SGOT/AST 23 U/L (17-59); SGPT/ALT 21 U/L (0-50); SODIUM 140 mmol/L (137-145); Total Protein 6.8 gm/dL (6.3-8.2)
[2017-11-06 05:55] LABS: NT PRO BNP 50.8 pg/mL (0-900)
[2017-11-06 06:01] LABS: INFLUENZA A NEGATIVE (NEGATIVE); INFLUENZA B NEGATIVE (NEGATIVE); RESPIRATORY SYNCTIAL VIRUS NEGATIVE (Negative)
[2017-11-06 06:47] LABS: Appearance CLEAR (CLEAR); Bilirubin NEGATIVE (NEGATIVE); Glucose NEGATIVE (NEGATIVE); Ketones NEGATIVE (NEGATIVE); Leukocyte Esterase NEGATIVE (NEGATIVE); Mucus MODERATE /HPF (NEGATIVE); Nitrite NEGATIVE (NEGATIVE); Protein,Urine Dip NEGATIVE (Negative); Specific Gravity 1.025 (1.005-1.025); Urobilinogen NORMAL mg/dL (0-1)
[2017-11-06 06:48] LABS: Bacteria RARE /HPF (NEGATIVE); Epithelial Cells RARE /HPF (FEW); WBC 0-2 /HPF (0-5)
[2017-11-06 07:17] LABS: Amphetamine,Urine NEGATIVE (NEGATIVE); Barbiturate,Urine NEGATIVE (NEGATIVE); Benzodiazepine,Urine NEGATIVE (NEGATIVE); Cocaine,Urine NEGATIVE (NEGATIVE); Methadone,Urine NEGATIVE (NEGATIVE); Opiate,Urine NEGATIVE (NEGATIVE); PCP,Urine NEGATIVE (NEGATIVE); THC,Urine NEGATIVE (NEGATIVE)
[2017-11-06] MEDS ORDERED: Phenergan 25 MG INJ IV PRN (07:50)
[2017-11-06] MEDS ORDERED: PROVENTIL 2.5 MG/3 ML NEB IH PRN (07:50)
[2017-11-06] MEDS ORDERED: solu-MEDROL 40 MG IV SCH (08:00)
[2017-11-06 08:37] LABS: Basophil (Absolute #) 0 (0-0.4); Eosinophil (Absolute #) 0 (0-0.5); Granulocytes % 96.9 % (36.0-66.0); Hematocrit 35.2 % (42-50); Hemoglobin 10.8 gm/dl (12.5-18.0); Lymphocyte (Absolute #) 0.14 (1.0-4.6); Lymphocytes % 1.7 % (24.0-44.0); Mean Cell Volume 84.2 fl (78-100); Mean Corpuscular Hemoglobin 25.8 pg (26-32); Mean Corpuscular Hgb Concent. 30.7 g/dl (32-36); Mean Platelet Volume 10.4 fl (6-9.5); Monocyte (Absolute #) 0.12 (0.0-1.3); Monocytes % 1.4 % (0.0-12.0); Platelet Count 173 K/mm3 (150-450); Red Blood Count 4.18 M/mm3 (4.1-5.6); Red Cell Distribution Width 15.1 % (11.5-14.0); White Blood Count 8.5 K/mm3 (4.0-10.5)
[2017-11-06] MEDS: Sodium Chloride 0.9% 1000 ML 1,000 ML IV SCH ×2 (08:53→16:41)
--- NOTE | 2017-11-06 08:54 | XRAY ---
Indication: Short of breath. COPD. Comparison: January 02, 2017. Portable chest again demonstrates COPD and a few incidental calcified granulomas. There has been clearing of the previous left upper lobe interstitial alveolar opacity with now scarring. No new infiltrate, consolidation, or large effusion. Heart is not enlarged. Bony thorax intact. Impression: Stable COPD and evidence for old granulomatous disease. No new/acute cardiopulmonary abnormalities.
--- NOTE | 2017-11-06 08:59 | HP ---
CHIEF COMPLAINT: Shortness of breath and productive cough. HISTORY OF PRESENT ILLNESS: The patient is a 66 year-old white male patient with a long history of chronic obstructive pulmonary disease on home oxygen for several years. He has done well over the past several months. However the last two evenings he began having problems with increasing shortness of breath and producing yellow sputum. He has home O2 saturation monitor reports that has been dropping into the 80's. His family has been sick recently bringing him most likely viral infection home which has triggered his acute exacerbation of the chronic obstructive pulmonary disease. PAST MEDICAL/SURGICAL HISTORY: Otherwise significant for gastroesophageal reflux disease, coronary artery disease and hyperlipidemia. He is steroid dependent for his end stage chronic obstructive pulmonary disease. He has previously had hemorrhoidectomy. HOME MEDICATIONS: Albuterol, Fosamax, fluticasone, hydrocodone, Combivent inhaler, prednisone 10 mg daily, Daliresp, aspirin, Atorvastatin, carvedilol, Plavix, pantoprazole and Altace. ALLERGIES: NKDA. PHYSICAL EXAMINATION: The patient's vital signs on admission showed temperature 97.4F, pulse 134, respiratory rate 28, blood pressure 182/93. O2 saturation 93% on 4 liters nasal cannula. HEENT: Normocephalic, atraumatic. Pupils equal round reactive to light. Extraocular movements intact. He is wearing oxygen per nasal cannula. Oropharynx is dry. NECK: Supple without lymphadenopathy, thyromegaly or JVD. CHEST: Revealed diminished air movement, quite tight with slight wheezes and air movement only heard in the upper lobes. HEART: Regular rate and rhythm slightly tachycardic. No significant murmurs, rubs or gallops are heard. ABDOMEN: Scaphoid. No abdominal masses are felt. There is no guarding or rebound. EXTREMITIES: Without cyanosis or edema. There is slight clubbing present. NEUROLOGIC: The patient is alert and oriented x3. No focal deficits were noted. LAB DATA AND TESTS: Revealed troponin less than 0.012. Influenza A, B and respiratory syncytial virus were negative. His metabolic panel showed a glucose of 128, BUN 22, creatinine 0.77. Electrolytes were normal. Liver enzymes were normal. Strep was negative. [place] was negative. D-dimer was normal. ABG on supplemental oxygen revealed pH 7.42, pCO2 46, pO2 64. White blood cell count 8,300 with what appeared to be a left shift with 8.8% granulocytes. His hemoglobin was 11.9, PLT count 187,000. Lactic acid 2.1. UA was essentially normal. Urine drug screen was negative. EKG showed sinus tachycardia, a lot of baseline interference. No significant ST or T-wave changes are detected. ASSESSMENT: A patient with acute exacerbation of chronic obstructive pulmonary disease, possible pneumonia. He has been admitted to the hospital. He has already received Rocephin and Zithromax. We will also be treating with IV Solu-Medrol 125 mg every six hours. He will continue to receive his nebulizer treatments. We will assess him for need for other medications and possible pulmonary consultation if he does not improve although at this point he is in reasonably good shape for him. He is alert and active in bed although he does have some pursed lip breathing with activities.
[2017-11-06 09:01] LABS: Slide Review 1 YES
[2017-11-06 09:17] LABS: ALBUMIN 3.6 g/dL (3.5-5.0); ALKALINE PHOSPHATASE 74 U/L (38-126); ANION GAP 12.1 MEQ/L (5-15); BLOOD UREA NITROGEN 18 mg/dL (9-20); CHLORIDE 101 mmol/L (98-107); Calcium 8.6 mg/dL (8.4-10.2); Carbon Dioxide 33 mmol/L (22-30); Creatinine 1 0.74 mg/dL (0.66-1.25); Glucose 135 mg/dL (74-106); Potassium 4.2 mmol/L (3.5-5.1); SGOT/AST 26 U/L (17-59); SGPT/ALT 21 U/L (0-50); SODIUM 141 mmol/L (137-145); Total Protein 6.5 g/dL (6.3-8.2)
[2017-11-06 09:35] LABS: TROPONIN < 0.012 ng/mL (0.000-0.034)
[2017-11-06 10:19] LABS: A-aADO2 132; ABG HEMOGLOBIN 11.5; ABG POTASSIUM 3.7 (3.5-5.1); ABG SITE LEFT RADIAL; ALLEN TEST OK? YES; ARTERIAL BLD GAS O2 SATURATION 96.4 % (95-100); ARTERIAL BLOOD GAS BASE EXCESS 7.8 (-2.0-2.0); ARTERIAL BLOOD GAS FIO2 36 %; ARTERIAL BLOOD GAS PCO2 46 mmHg (35-45); ARTERIAL BLOOD GAS PO2 67 mmHg (75-100); ARTERIAL BLOOD GAS pH 7.46 (7.35-7.45); CARBOXYHEMOGLOBIN 3.4 % THgb (0.0-6.9); HCO3- 32.7 (22-28); HGB O2 SAT 92.2 g/dF (94-100); Lactic Acid 1.1 (0.4-2.0); Methhemoglobin 1.1 % (1.4-1.5); paO2 pAO1 0.34
[2017-11-06] MEDS: solu-MEDROL 125 MG IV SCH ×3 (11:15→22:10)
[2017-11-06] MEDS: DUONEB 0.5-3 MG/3 ml Neb IH SCH ×4 (11:50→18:20)
[2017-11-06] MEDS ORDERED: PROVENTIL 2.5 MG/3 ML NEB IH SCH (15:30)
[2017-11-06] MEDS: PLAVIX 75 MG Tablet PO SCH (16:01)
[2017-11-06] MEDS: Pepcid 20 MG PO SCH (16:01)
[2017-11-06] MEDS: Protonix 40MG Tablet PO SCH (16:01)
[2017-11-06] MEDS: Altace 5 MG PO SCH (16:01)
[2017-11-06] MEDS: Advair Hfa 115/21 Common canister IH SCH (18:20)
[2017-11-06] MEDS: DALIRESP PO SCH (18:39)
[2017-11-06] MEDS ORDERED: ALBUTEROL SULFATE IH SCH (22:00)
[2017-11-06] MEDS ORDERED: IPRATROPIUM IH SCH (22:00)
[2017-11-07] MEDS: Sodium Chloride 0.9% 1000 ML 1,000 ML IV SCH ×2 (00:28→17:17)
[2017-11-07] MEDS: solu-MEDROL 125 MG IV SCH ×4 (04:59→21:47)
[2017-11-07] MEDS: DUONEB 0.5-3 MG/3 ml Neb IH SCH ×6 (05:17→21:55)
[2017-11-07 05:42] LABS: Granulocyte Absolute (ANC) 8.72 (1.4-6.9); Hematocrit 37.4 % (42-50); Hemoglobin 11.3 gm/dl (12.5-18.0); Mean Cell Volume 84.8 fl (78-100); Mean Corpuscular Hemoglobin 25.6 pg (26-32); Mean Corpuscular Hgb Concent. 30.2 g/dl (32-36); Mean Platelet Volume 10.4 fl (6-9.5); Platelet Count 184 K/mm3 (150-450); Red Blood Count 4.41 M/mm3 (4.1-5.6); Red Cell Distribution Width 15.5 % (11.5-14.0); White Blood Count 9.5 K/mm3 (4.0-10.5)
[2017-11-07 06:04] LABS: ANION GAP 12.4 MEQ/L (5-15); BLOOD UREA NITROGEN 14 mg/dL (9-20); CHLORIDE 106 mmol/L (98-107); Calcium 8.3 mg/dL (8.4-10.2); Carbon Dioxide 28 mmol/L (22-30); Creatinine 1 0.58 mg/dL (0.66-1.25); Glucose 137 mg/dL (74-106); Potassium 4.1 mmol/L (3.5-5.1); SODIUM 142 mmol/L (137-145)
[2017-11-07] MEDS: Advair Hfa 115/21 Common canister IH SCH ×2 (06:55→18:20)
[2017-11-07] MEDS ORDERED: Spiriva 18 Mcg/Cap Inhaler IH ONE (07:00)
[2017-11-07] MEDS: Spiriva 18 Mcg/Cap Inhaler IH SCH (07:02)
[2017-11-07 08:11] LABS: BAND 4 % (0.0-2.0); Lymphocytes 2 % (24-44); Monocyte 1 % (0.0-12.0); Neutrophils 93 % (36.-66.); Total Cells Counted 100
[2017-11-07 08:12] LABS: Platelet Estimate NORMAL (NORMAL)
[2017-11-07] MEDS ORDERED: Ativan 2 MG/1 ML VIAL IV ONE (08:37)
[2017-11-07 08:48] LABS: A-aADO2 151; ABG HEMOGLOBIN 12.1; ABG POTASSIUM 4.1 (3.5-5.1); ARTERIAL BLD GAS O2 SATURATION 91.1 % (95-100); ARTERIAL BLOOD GAS BASE EXCESS 4.2 (-2.0-2.0); ARTERIAL BLOOD GAS FIO2 40 %; ARTERIAL BLOOD GAS PCO2 62 mmHg (35-45); ARTERIAL BLOOD GAS PO2 57 mmHg (75-100); ARTERIAL BLOOD GAS pH 7.32 (7.35-7.45); CARBOXYHEMOGLOBIN 1.4 % THgb (0.0-6.9); HCO3- 31.9 (22-28); HGB O2 SAT 88.8 g/dF (94-100); Methhemoglobin 1.1 % (1.4-1.5); paO2 pAO1 0.27
[2017-11-07 08:49] LABS: ABG SITE RIGHT RADIAL; ALLEN TEST OK? YES
[2017-11-07] MEDS ORDERED: Ativan 2 MG/1 ML VIAL IV PRN (09:53)
[2017-11-07] MEDS ORDERED: PHARMACY DOSING REQUEST MC ONE (09:53)
--- NOTE | 2017-11-07 09:57 | XRAY ---
Indication: Severe short of breath. Comparison: One day earlier. Portable chest demonstrates stable COPD, left apical scarring, and a few calcified granulomas. Heart and mediastinal structures within normal limits. No new/acute findings.
[2017-11-07] MEDS ORDERED: NON-FORMULARY ITEM (Fluticasone/Vilanterol [Breo Ellipta 100-25 Mcg Inh] 1 PUFF) IH SCH (10:00)
[2017-11-07] MEDS ORDERED: BABY ASPIRIN 81 MG CHEW PO SCH (10:00)
[2017-11-07] MEDS ORDERED: ROCEPHIN 1 Gm-D5w 50 ml Bag** 1 G/50 ML IVPB IV SCH (10:00)
[2017-11-07] MEDS ORDERED: Zithromax 500 MG/ 250 ML NaCl Premix 500 MG/250 ML IVPB IV SCH (10:00)
[2017-11-07] MEDS: Aminophylline 500 MG/20 ML*** 500 MG in Sodium Chloride 0.9% 500 ML 500 ML IV SCH (10:35)
[2017-11-07] MEDS: Protonix 40MG Tablet PO SCH (10:51)
[2017-11-07] MEDS: DALIRESP PO SCH (10:51)
[2017-11-07] MEDS: PLAVIX 75 MG Tablet PO SCH (10:51)
[2017-11-07] MEDS: ECOTRIN 81 MG PO SCH (10:51)
[2017-11-07] MEDS: Altace 5 MG PO SCH (10:51)
[2017-11-07] MEDS: Pepcid 20 MG PO SCH (10:51)
[2017-11-07] MEDS: ENOXAPARIN SODIUM SQ SCH (11:41)
[2017-11-07 13:41] LABS: A-aADO2 389; ABG HEMOGLOBIN 11.2; ABG POTASSIUM 4.3 (3.5-5.1); ARTERIAL BLOOD GAS BASE EXCESS 7.7 (-2.0-2.0); ARTERIAL BLOOD GAS FIO2 100 %; ARTERIAL BLOOD GAS PO2 249 mmHg (75-100); ARTERIAL BLOOD GAS pH 7.37 (7.35-7.45); CARBOXYHEMOGLOBIN 1.1 % THgb (0.0-6.9); HCO3- 34.7 (22-28); HGB O2 SAT 96.5 g/dF (94-100); Methhemoglobin 1.4 % (1.4-1.5); paO2 pAO1 0.39
[2017-11-07 13:42] LABS: ARTERIAL BLOOD GAS PCO2 60 mmHg (35-45)
[2017-11-07 13:44] LABS: ABG SITE LEFT RADIAL; ALLEN TEST OK? YES
[2017-11-07] MEDS: TYLENOL 325 MG PO PRN (14:20)
[2017-11-07] MEDS: Ativan 2 MG/1 ML VIAL IV PRN ×2 (19:07→23:57)
[2017-11-07 20:05] LABS: A-aADO2 130; ABG HEMOGLOBIN 11.4; ABG POTASSIUM 4.3 (3.5-5.1); ABG SITE LEFT RADIAL; ARTERIAL BLD GAS O2 SATURATION 97.2 % (95-100); ARTERIAL BLOOD GAS FIO2 40 %; ARTERIAL BLOOD GAS PCO2 58 mmHg (35-45); ARTERIAL BLOOD GAS PO2 83 mmHg (75-100); ARTERIAL BLOOD GAS VENT MODE BiPAP; ARTERIAL BLOOD GAS pH 7.35 (7.35-7.45); CARBOXYHEMOGLOBIN 1.1 % THgb (0.0-6.9); HGB O2 SAT 95.1 g/dF (94-100); Methhemoglobin 1.1 % (1.4-1.5); paO2 pAO1 0.39
[2017-11-07 20:06] LABS: ALLEN TEST OK? YES
[2017-11-07] MEDS ORDERED: solu-MEDROL 125 MG ONE (20:53)
[2017-11-08] MEDS: Sodium Chloride 0.9% 1000 ML 1,000 ML IV SCH ×3 (02:27→20:07)
[2017-11-08] MEDS: DUONEB 0.5-3 MG/3 ml Neb IH SCH ×5 (02:38→19:35)
[2017-11-08] MEDS ORDERED: solu-MEDROL 125 MG ONE (02:50)
[2017-11-08] MEDS: Ativan 2 MG/1 ML VIAL IV PRN ×5 (03:13→20:23)
[2017-11-08] MEDS: solu-MEDROL 125 MG IV SCH ×4 (03:13→22:04)
[2017-11-08] MEDS: Aminophylline 500 MG/20 ML*** 500 MG in Sodium Chloride 0.9% 500 ML 500 ML IV SCH ×2 (03:37→22:05)
--- NOTE | 2017-11-08 08:41 | XRAY ---
Indication: Severe dyspnea. Comparison: One day earlier. Portable chest unchanged again demonstrating COPD, left apical scarring, and a few tiny calcified granulomas. Heart is not enlarged. No new/acute findings.
[2017-11-08] MEDS: ECOTRIN 81 MG PO SCH (09:25)
[2017-11-08] MEDS: Protonix 40MG Tablet PO SCH (09:25)
[2017-11-08] MEDS: LEVOFLOXACIN 750MG/150ML D5W 750 MG/150 ML BAG IV SCH (09:25)
[2017-11-08] MEDS: ENOXAPARIN SODIUM SQ SCH (09:25)
[2017-11-08] MEDS: Altace 5 MG PO SCH (09:25)
[2017-11-08] MEDS: Pepcid 20 MG PO SCH (09:25)
[2017-11-08] MEDS: PLAVIX 75 MG Tablet PO SCH (09:25)
[2017-11-08] MEDS: DALIRESP PO SCH (09:26)
[2017-11-08] MEDS: Advair Hfa 115/21 Common canister IH SCH ×2 (09:40→19:36)
[2017-11-08] MEDS: Spiriva 18 Mcg/Cap Inhaler IH SCH (09:41)
[2017-11-08] MEDS: MAXIPIME 1 GM** 1 G in Sodium Chloride 100ML MINI-BAG PLUS 100 ML IV SCH ×2 (13:16→22:06)
--- NOTE | 2017-11-08 14:34 | CONS ---
CONSULT DATE: 11/08/2017 HISTORY: Oscar Hyman is a 66 year-old male known to me from previous hospitalizations and office visits although not followed by me for the last 12 months, who had been brought to the hospital with complaints of increasing shortness of breath, cough and wheezing. The patient was noted to have acute on chronic hypoxic/hypercapnic respiratory failure. He has been admitted to ICU. He was started on IV antibiotics, steroids, along with aminophylline drip. As his symptoms did not show clinical improvement blood gases were obtained which I reviewed. Last night the patient was progressively more short of breath and was placed on BiPAP with Ativan which seems to have helped his symptoms in fact to some extent. At the time of my evaluation this morning the patient is more awake, able to talk. He appears more comfortable than yesterday according to staff. PAST MEDICAL HISTORY: Positive for end-stage chronic obstructive pulmonary disease, chronic hypoxia/hypercapnic respiratory failure, coronary artery disease, hypertension, anxiety, osteoporosis, nicotine addiction and gastroesophageal reflux disease. PAST SURGICAL HISTORY: No recent surgery. PERSONAL AND SOCIAL HISTORY: The patient still unfortunately continues to smoke. He is lives with this . MEDICATIONS: At home he was on Albuterol nebulizer every six hours, Alendronate 70 mg daily, Breo 1 puff daily, [place] 10/325 mg every four hours PRN, Combivent inhaler 2 puffs b.i.d., prednisone 10 mg daily, Daliresp 500 mcg daily, aspirin 81 mg daily, Atorvastatin 80 mg daily, carvedilol 12.5 mg daily, Plavix 75 mg daily, Protonix 40 mg daily, Ramipril 5 mg daily. ALLERGIES: NKDA. PHYSICAL EXAMINATION: This is a middle aged male who appears mildly short of breath during conversation. He is afebrile. The patient is noted to have tachycardia, heart rate in 120's with ectopy. Blood pressure 134/70. Saturating 92 to 94%. HEENT: Normocephalic. Oral exam is limited. Oropharynx is small. NECK: Supple. Accessory muscles are prominent. CVS: First and second heart sounds tachycardia and ectopy. RESPIRATORY: Shows increase in AP diameter. Breath sounds are significantly diminished. Bilateral rhonchi are heard. ABDOMEN: Soft. EXTREMITIES: Trace pretibial edema is noted. LABORATORY DATA AND TESTS: Sputum is growing Pseudomonas which is sensitive to Maxipime, Levaquin, Zosyn, Merrem, Cipro and gentamicin. Repeat ABG this morning pH 7.35, pCO2 50, pO2 83. White blood cell count 9.5, hemoglobin 11.3, hematocrit 37, PLT 184,000. Sodium 142, potassium 142, potassium 4.1, chloride 106, bicarb 20, glucose 137, BUN 14, creatinine 0.5. Troponin I's are negative. Chest x-ray showed hyperinflation with apical scarring. ASSESSMENT: This is a 66 year old male with: 1) End stage chronic obstructive pulmonary disease admitted with acute hypoxic respiratory failure. 2) Chronic hypercapnic respiratory failure. 3) End stage chronic obstructive pulmonary disease with exacerbation. 4) Acute bronchopneumonia with Pseudomonas. 5) Tachycardia, reactive with ectopy. 6) Anxiety. 7) Nicotine addiction. RECOMMENDATIONS: I agree with present treatment, continue BiPAP along with Ativan as needed. The patient is on Levaquin, will add second antibiotic mainly to cover for Pseudomonas. Agree with deep venous thrombosis and GI prophylaxis. Continue home medications. Need for smoking cessation was discussed. Follow up in outpatient setting upon discharge. The patient's prognosis remains guarded with his age and advanced nature of cardiopulmonary problems discussed with patient and . Thank you for allowing me to participate in the care of Oscar Hyman.
[2017-11-09] MEDS: Ativan 2 MG/1 ML VIAL IV PRN ×5 (01:22→21:52)
[2017-11-09] MEDS: DUONEB 0.5-3 MG/3 ml Neb IH SCH ×7 (01:22→23:03)
[2017-11-09] MEDS: TYLENOL 325 MG PO PRN (02:35)
[2017-11-09] MEDS: Sodium Chloride 0.9% 1000 ML 1,000 ML IV SCH ×2 (03:22→10:31)
[2017-11-09] MEDS: solu-MEDROL 125 MG IV SCH ×2 (03:53→21:51)
[2017-11-09] MEDS: Advair Hfa 115/21 Common canister IH SCH ×2 (06:46→18:58)
[2017-11-09] MEDS: Spiriva 18 Mcg/Cap Inhaler IH SCH (06:47)
[2017-11-09 07:49] LABS: A-aADO2 125; ABG HEMOGLOBIN 10.7; ABG POTASSIUM 3.8 (3.5-5.1); ARTERIAL BLD GAS O2 SATURATION 92.2 % (95-100); ARTERIAL BLOOD GAS BASE EXCESS 11.1 (-2.0-2.0); ARTERIAL BLOOD GAS FIO2 36 %; ARTERIAL BLOOD GAS PO2 55 mmHg (75-100); CARBOXYHEMOGLOBIN 1.6 % THgb (0.0-6.9); HCO3- 37.8 (22-28); HGB O2 SAT 90.1 g/dF (94-100); Methhemoglobin 0.8 % (1.4-1.5); paO2 pAO1 0.31
[2017-11-09 07:50] LABS: ABG SITE LEFT RADIAL; ALLEN TEST OK? YES; ARTERIAL BLOOD GAS PCO2 61 mmHg (35-45)
[2017-11-09] MEDS: DILAUDID 2 MG INJECTION IV PRN ×3 (08:48→19:51)
[2017-11-09] MEDS: MAXIPIME 1 GM** 1 G in Sodium Chloride 100ML MINI-BAG PLUS 100 ML IV SCH ×2 (09:50→21:51)
[2017-11-09] MEDS ORDERED: solu-MEDROL 125 MG IV SCH (10:00)
[2017-11-09] MEDS: Altace 5 MG PO SCH (10:18)
[2017-11-09] MEDS: ENOXAPARIN SODIUM SQ SCH (10:18)
[2017-11-09] MEDS: LEVOFLOXACIN 750MG/150ML D5W 750 MG/150 ML BAG IV SCH (10:19)
[2017-11-09] MEDS: ECOTRIN 81 MG PO SCH (10:19)
[2017-11-09] MEDS: Pepcid 20 MG PO SCH (10:19)
[2017-11-09] MEDS: Protonix 40MG Tablet PO SCH (10:19)
[2017-11-09] MEDS: PLAVIX 75 MG Tablet PO SCH (10:19)
[2017-11-09] MEDS: DALIRESP PO SCH (10:19)
[2017-11-09] MEDS: Aminophylline 500 MG/20 ML*** 500 MG in Sodium Chloride 0.9% 500 ML 500 ML IV SCH (15:36)
[2017-11-10] MEDS: Ativan 2 MG/1 ML VIAL IV PRN ×5 (01:53→21:57)
[2017-11-10] MEDS: DUONEB 0.5-3 MG/3 ml Neb IH SCH ×6 (03:10→23:14)
[2017-11-10] MEDS: DILAUDID 2 MG INJECTION IV PRN ×4 (04:01→23:42)
[2017-11-10] MEDS: solu-MEDROL 125 MG IV SCH ×3 (06:51→21:57)
[2017-11-10 07:50] LABS: Granulocyte Absolute (ANC) 7.49 (1.4-6.9); Hematocrit 39.6 % (42-50); Hemoglobin 11.9 gm/dl (12.5-18.0); Mean Cell Volume 86.5 fl (78-100); Mean Corpuscular Hgb Concent. 30.1 g/dl (32-36); Mean Platelet Volume 10.7 fl (6-9.5); Platelet Count 213 K/mm3 (150-450); Red Blood Count 4.58 M/mm3 (4.1-5.6); Red Cell Distribution Width 15.7 % (11.5-14.0); White Blood Count 8.3 K/mm3 (4.0-10.5)
[2017-11-10 08:35] LABS: Mean Corpuscular Hemoglobin 25.9 pg (26-32)
[2017-11-10 08:42] LABS: ALBUMIN 3.6 g/dL (3.5-5.0); ALKALINE PHOSPHATASE 65 U/L (38-126); ANION GAP 13.2 MEQ/L (5-15); BLOOD UREA NITROGEN 25 mg/dL (9-20); CHLORIDE 103 mmol/L (98-107); Calcium 8.7 mg/dL (8.4-10.2); Carbon Dioxide 31 mmol/L (22-30); Creatinine 1 0.58 mg/dL (0.66-1.25); Glucose 142 mg/dL (74-106); Potassium 4.6 mmol/L (3.5-5.1); SGOT/AST 30 U/L (17-59); SGPT/ALT 31 U/L (0-50); SODIUM 143 mmol/L (137-145); Total Protein 6.5 g/dL (6.3-8.2)
[2017-11-10] MEDS: PLAVIX 75 MG Tablet PO SCH (09:11)
[2017-11-10] MEDS: ECOTRIN 81 MG PO SCH (09:11)
[2017-11-10] MEDS: Protonix 40MG Tablet PO SCH (09:11)
[2017-11-10] MEDS: Pepcid 20 MG PO SCH (09:11)
[2017-11-10] MEDS: Altace 5 MG PO SCH (09:11)
--- NOTE | 2017-11-10 09:33 | PCM.NOTE ---
Date and Time: 11/10/17925 Subjective Assessment: remains very short of breath and anxious and requires the bipap very hungry but too weak to eat has to be fed by nurses no abdominal pain or chest pain but feels like he is drowning he states. Objective Exam General Appearance: moderate distress Neurologic Exam: alert, oriented x 3 Skin Exam: warm, dry Eye Exam: No scleral icterus, No pale conjunctivae Ears, Nose, Throat Exam: dry mucous membranes Neck Exam: normal inspection, non-tender, supple Respiratory Exam: respiratory distress, accessory muscle use, prolonged expirations, wheezing, No crackles/rales, No rhonchi, No stridor Cardiovascular Exam: tachycardia, No murmur, No edema Gastrointestinal/Abdomen Exam: soft, normal bowel sounds, No tenderness Extremity Exam: normal inspection, No calf tenderness, No pedal edema OBJECTIVE DATA Vital Signs: Vital Signs - 24 hr Temp Pulse Resp BP Pulse Ox 11/10/17 07:00 97 H 17 96 11/10/17 06:00 98.5 F 102 H 18 130/65 95 11/10/17 05:00 19 11/10/17 04:06 124 H 11/10/17 03:11 121 H 23 95 11/10/17 02:00 97.6 F 115 H 22 117/86 94 L 11/10/17 01:00 100 H 11/10/17 00:59 18 11/09/17 23:03 95 H 17 96 11/09/17 22:00 98.6 F 87 21 127/90 99 11/09/17 21:00 115 H 18 11/09/17 18:59 104 H 20 97 11/09/17 17:23 98.5 F 123 H 18 114/82 95 11/09/17 16:35 100 H 18 11/09/17 14:23 110 H 17 94 L 11/09/17 14:00 98.4 F 104 H 18 137/78 95 11/09/17 12:00 127 H 18 11/09/17 10:28 95 H 16 93 L 11/09/17 10:00 98.4 F 97 H 17 130/84 96 Oxygen-Last 24 hours O2 Percentage 5 Liters = 40% O2 Percentage 5 Liters = 40% O2 Percentage 5 Liters = 40% O2 Percentage 40% O2 Percentage 40% O2 Percentage 40% Pain Assessment - Last Documented Pain Intensity 3 Pain Scale Used 0-10 Pain Scale Intake and Output: Intake & Output 11/07/17 11/08/17 11/09/17 11/10/17 11:59 11:59 11:59 11:59 Intake Total 4770 2212 3253 Output Total 7389 0003 1525 Balance 1651 1163 948 Weight 75 kg 76.4 kg 77 kg Lab Results: Lab Results-Last 24 Hours 11/09/17 11/10/17 11/10/17 Range/Units 13:55 05:44 05:44 WBC 8.3 (4.0-10.5) K/mm3 RBC 4.58 (4.1-5.6) M/mm3 Hgb 11.9 L (12.5-18.0) gm/dl Hct 39.6 L (42-50) % MCV 86.5 (78-100) fl MCH 25.9 L (26-32) pg MCHC 30.1 L (32-36) g/dl RDW 15.7 H (11.5-14.0) % Plt Count 213 (150-450) K/mm3 MPV 10.7 H (6-9.5) fl Sodium (137-145) mmol/L Potassium (3.5-5.1) mmol/L Chloride (98-107) mmol/L Carbon Dioxide (22-30) mmol/L Anion Gap (5-15) MEQ/L BUN (9-20) mg/dL Creatinine (0.66-1.25) mg/dL Estimated GFR ML/MIN Glucose (74-106) mg/dL Calcium (8.4-10.2) mg/dL Total Bilirubin (0.2-1.3) mg/dL AST (17-59) U/L ALT (0-50) U/L Alkaline Phosphatase (38-126) U/L Serum Total Protein (6.3-8.2) g/dL Albumin (3.5-5.0) g/dL Theophylline 11.1 11.8 (10-20) ug/mL 11/10/17 Range/Units 05:44 WBC (4.0-10.5) K/mm3 RBC (4.1-5.6) M/mm3 Hgb (12.5-18.0) gm/dl Hct (42-50) % MCV (78-100) fl MCH (26-32) pg MCHC (32-36) g/dl RDW (11.5-14.0) % Plt Count (150-450) K/mm3 MPV (6-9.5) fl Sodium 143 (137-145) mmol/L Potassium 4.6 (3.5-5.1) mmol/L Chloride 103 (98-107) mmol/L Carbon Dioxide 31 H (22-30) mmol/L Anion Gap 13.2 (5-15) MEQ/L BUN 25 H (9-20) mg/dL Creatinine 0.58 L (0.66-1.25) mg/dL Estimated GFR > 60 ML/MIN Glucose 142 H (74-106) mg/dL Calcium 8.7 (8.4-10.2) mg/dL Total Bilirubin 0.50 (0.2-1.3) mg/dL AST 30 (17-59) U/L ALT 31 (0-50) U/L Alkaline Phosphatase 65 (38-126) U/L Serum Total Protein 6.5 (6.3-8.2) g/dL Albumin 3.6 (3.5-5.0) g/dL Theophylline (10-20) ug/mL Radiology Exams: Radiology Procedures Category Date Time Status CHEST 1 VIEW (PORTABLE) Urgent Exams 11/08/17 08:30 Completed Assessment/Plan (1) Pseudomonas pneumonia Current Visit: Yes Status: Acute Assessment & Plan: currently followed by Dr. Montes pulmonology on theophyllin gtt and bipap removes just to eat requires 40% FiO2 on ceftazidime and levaquin which the pseudomonas is sensitive to both on solumedrol 100 tid currently continue maximum supportive therapy poor response thus far still very poor air movement on pe ppx guarded prognosis (2) Respiratory failure, acute Current Visit: Yes Status: Acute Code(s): J96.00 - ACUTE RESPIRATORY FAILURE , UNSP W HYPOXIA OR HYPERCAPNIA (3) COPD with exacerbation Current Visit: Yes Status: Acute Code(s): J44.1 - CHRONIC OBSTRUCTIVE PULMONARY DISEASE W (ACUTE) EXACERBATION
[2017-11-10] MEDS: Lactated Ringers 1,000 ML IV SCH (10:02)
[2017-11-10] MEDS: DALIRESP PO SCH (10:02)
[2017-11-10] MEDS: ENOXAPARIN SODIUM SQ SCH (10:03)
[2017-11-10] MEDS: Spiriva 18 Mcg/Cap Inhaler IH SCH (10:14)
[2017-11-10] MEDS: Advair Hfa 115/21 Common canister IH SCH (10:14)
[2017-11-10] MEDS: Mucomyst 200 MG/ML IH SCH ×2 (10:15→20:02)
[2017-11-10] MEDS: LEVOFLOXACIN 750MG/150ML D5W 750 MG/150 ML BAG IV SCH (10:15)
[2017-11-10] MEDS: MAXIPIME 1 GM** 1 G in Sodium Chloride 100ML MINI-BAG PLUS 100 ML IV SCH ×2 (11:32→21:57)
[2017-11-10] MEDS: Aminophylline 500 MG/20 ML*** 500 MG in Sodium Chloride 0.9% 500 ML 500 ML IV SCH (11:32)
[2017-11-10 14:16] LABS: Lymphocytes 4 % (24-44); Monocyte 2 % (0.0-12.0); Neutrophils 94 % (36.-66.); Platelet Estimate NORMAL (NORMAL); Total Cells Counted 100
[2017-11-10] MEDS: Sodium Chloride 0.9% 1000 ML 1,000 ML IV SCH (20:09)
[2017-11-11] MEDS: Advair Hfa 115/21 Common canister IH SCH ×2 (02:26→07:24)
[2017-11-11] MEDS: DUONEB 0.5-3 MG/3 ml Neb IH SCH ×5 (03:03→21:25)
[2017-11-11] MEDS: solu-MEDROL 125 MG IV SCH ×3 (05:17→21:18)
[2017-11-11] MEDS: Lactated Ringers 1,000 ML IV SCH ×3 (05:17→21:18)
[2017-11-11] MEDS: Ativan 2 MG/1 ML VIAL IV PRN ×4 (05:18→21:19)
[2017-11-11 05:24] LABS: A-aADO2 144; ABG HEMOGLOBIN 10.8; ARTERIAL BLD GAS O2 SATURATION 97.5 % (95-100); ARTERIAL BLOOD GAS BASE EXCESS 13.7 (-2.0-2.0); ARTERIAL BLOOD GAS FIO2 40 %; ARTERIAL BLOOD GAS PCO2 51 mmHg (35-45); ARTERIAL BLOOD GAS PO2 77 mmHg (75-100); ARTERIAL BLOOD GAS pH 7.49 (7.35-7.45); CARBOXYHEMOGLOBIN 2.1 % THgb (0.0-6.9); HCO3- 38.9 (22-28); HGB O2 SAT 94.4 g/dF (94-100); Methhemoglobin 1.1 % (1.4-1.5); paO2 pAO1 0.35
[2017-11-11 05:24] LABS: BASOPHIL % 0.2 % (0.0-0.4); Basophil (Absolute #) 0.01 (0-0.4); Eosinophil (Absolute #) 0 (0-0.5); Granulocyte Absolute (ANC) 5.62 (1.4-6.9); Granulocytes % 90.2 % (36.0-66.0); Hematocrit 34.3 % (42-50); Hemoglobin 10.3 gm/dl (12.5-18.0); Lymphocytes % 4.8 % (24.0-44.0); Mean Cell Volume 85.8 fl (78-100); Mean Platelet Volume 10.1 fl (6-9.5); Monocytes % 4.8 % (0.0-12.0); Platelet Count 181 K/mm3 (150-450); Red Cell Distribution Width 15.3 % (11.5-14.0); White Blood Count 6.2 K/mm3 (4.0-10.5)
[2017-11-11 05:25] LABS: ABG SITE LEFT RADIAL; ALLEN TEST OK? YES
[2017-11-11 05:33] LABS: Mean Corpuscular Hemoglobin 25.7 pg (26-32)
[2017-11-11 06:26] LABS: ALBUMIN 3.1 g/dL (3.5-5.0); ALKALINE PHOSPHATASE 52 U/L (38-126); ANION GAP 7.8 MEQ/L (5-15); BLOOD UREA NITROGEN 28 mg/dL (9-20); CHLORIDE 98 mmol/L (98-107); Calcium 8.5 mg/dL (8.4-10.2); Carbon Dioxide 37 mmol/L (22-30); Creatinine 1 0.63 mg/dL (0.66-1.25); Glucose 142 mg/dL (74-106); SGOT/AST 30 U/L (17-59); SGPT/ALT 26 U/L (0-50); SODIUM 139 mmol/L (137-145); Total Protein 5.6 g/dL (6.3-8.2)
[2017-11-11] MEDS: Spiriva 18 Mcg/Cap Inhaler IH SCH (07:24)
[2017-11-11] MEDS: Mucomyst 200 MG/ML IH SCH ×2 (07:25→21:24)
[2017-11-11] MEDS: Aminophylline 500 MG/20 ML*** 500 MG in Sodium Chloride 0.9% 500 ML 500 ML IV SCH ×2 (07:39→07:58)
[2017-11-11] MEDS: DILAUDID 2 MG INJECTION IV PRN ×3 (07:56→17:54)
--- NOTE | 2017-11-11 08:22 | PCM.NOTE ---
Date and Time: 11/11/17814 Subjective Assessment: seems just a little better today tolerates off the bipap a little longer on nc at 6L tachycardia yesterday into the 140's on nc and would improve to 90 to 100 range on bipap at 40% FiO2. He is still very weak and requires assistance with eating and desats with minimal exertion. Objective Exam General Appearance: mild distress Neurologic Exam: alert, oriented x 3, cooperative Skin Exam: warm, dry Eye Exam: No scleral icterus, No pale conjunctivae Ears, Nose, Throat Exam: dry mucous membranes Neck Exam: non-tender, supple Respiratory Exam: other (fine rales throughout with improved wheezing throughout still with poor airmovement and prolonged expiration phase) Cardiovascular Exam: normal peripheral pulses, tachycardia, No murmur, No edema Gastrointestinal/Abdomen Exam: soft, normal bowel sounds, No tenderness, No distention Extremity Exam: normal inspection, No calf tenderness, No shari's sign OBJECTIVE DATA Vital Signs: Vital Signs - 24 hr Temp Pulse Resp BP Pulse Ox 11/11/17 07:37 97.1 F 96 H 20 156/99 96 11/11/17 05:00 98 H 11/11/17 04:41 97.6 F 92 H 17 115/85 94 L 11/11/17 03:04 98 H 16 97 11/11/17 02:00 97.8 F 97 H 16 143/104 94 L 11/11/17 01:00 97 H 11/10/17 23:14 104 H 19 94 L 11/10/17 22:00 114 H 19 129/93 97 11/10/17 20:39 117 H 11/10/17 20:04 113 H 19 96 11/10/17 18:00 127 H 20 125/96 95 11/10/17 17:00 126 H 19 11/10/17 14:26 410 H 16 96 11/10/17 13:00 106 H 11/10/17 12:02 98.3 F 132 H 17 143/105 95 11/10/17 10:00 98.4 F 90 17 124/91 97 11/10/17 09:00 134 H 19 Oxygen-Last 24 hours O2 Percentage 40% O2 Percentage 40% O2 Percentage 40% O2 Percentage 40% Pain Assessment - Last Documented Pain Intensity 7 Pain Scale Used 0-10 Pain Scale Intake and Output: Intake & Output 11/08/17 11/09/17 11/10/17 11/11/17 11:59 11:59 11:59 11:59 Intake Total 4763 7888 0332 2699 Output Total 1385 2350 1525 1850 Balance 3396 1162 089 432 Weight 75 kg 76.4 kg 77 kg 78.9 kg Lab Results: Lab Results-Last 24 Hours 11/10/17 11/10/17 11/11/17 Range/Units 05:44 05:44 04:00 WBC 8.3 6.2 (4.0-10.5) K/mm3 RBC 4.58 4.00 L (4.1-5.6) M/mm3 Hgb 11.9 L 10.3 L (12.5-18.0) gm/dl Hct 39.6 L 34.3 L (42-50) % MCV 86.5 85.8 (78-100) fl MCH 25.9 L 25.7 L (26-32) pg MCHC 30.1 L 30.0 L (32-36) g/dl RDW 15.7 H 15.3 H (11.5-14.0) % Plt Count 213 181 (150-450) K/mm3 MPV 10.7 H 10.1 H (6-9.5) fl Gran % 90.2 H (36.0-66.0) % Lymphocytes % 4.8 L (24.0-44.0) % Monocytes % 4.8 (0.0-12.0) % Eosinophils % 0.0 (0.00-5.0) % Basophils % 0.2 (0.0-0.4) % Segmented Neutrophils 94 H (36.-66.) % Lymphocytes (Manual) 4 L (24-44) % Monocytes (Manual) 2 (0.0-12.0) % Basophils # 0.01 (0-0.4) Differential Comment NORMAL Platelet Estimate NORMAL (NORMAL) Puncture Site pCO2 (35-45) mmHg pO2 (75-100) mmHg Base Excess (-2.0-2.0) O2 Saturation (94-100) g/dF ABG pH (7.35-7.45) ABG HCO3 (22-28) ABG O2 Sat (Measured) (95-100) % Tomas Test A-a Gradient a/A Ratio Hemoglobin Carboxyhemoglobin (0.0-6.9) % THgb Methemoglobin (1.4-1.5) % Temperature C POC O2 Flow Rate % Sodium 143 (137-145) mmol/L Potassium 4.6 (3.5-5.1) mmol/L Chloride 103 (98-107) mmol/L Carbon Dioxide 31 H (22-30) mmol/L Anion Gap 13.2 (5-15) MEQ/L BUN 25 H (9-20) mg/dL Creatinine 0.58 L (0.66-1.25) mg/dL Estimated GFR > 60 ML/MIN Glucose 142 H (74-106) mg/dL Calcium 8.7 (8.4-10.2) mg/dL Total Bilirubin 0.50 (0.2-1.3) mg/dL AST 30 (17-59) U/L ALT 31 (0-50) U/L Alkaline Phosphatase 65 (38-126) U/L Serum Total Protein 6.5 (6.3-8.2) g/dL Albumin 3.6 (3.5-5.0) g/dL Theophylline (10-20) ug/mL 11/11/17 11/11/17 11/11/17 Range/Units 05:00 05:00 05:14 WBC (4.0-10.5) K/mm3 RBC (4.1-5.6) M/mm3 Hgb (12.5-18.0) gm/dl Hct (42-50) % MCV (78-100) fl MCH (26-32) pg MCHC (32-36) g/dl RDW (11.5-14.0) % Plt Count (150-450) K/mm3 MPV (6-9.5) fl Gran % (36.0-66.0) % Lymphocytes % (24.0-44.0) % Monocytes % (0.0-12.0) % Eosinophils % (0.00-5.0) % Basophils % (0.0-0.4) % Segmented Neutrophils (36.-66.) % Lymphocytes (Manual) (24-44) % Monocytes (Manual) (0.0-12.0) % Basophils # (0-0.4) Differential Comment Platelet Estimate (NORMAL) Puncture Site LEFT RADIAL pCO2 51 H (35-45) mmHg pO2 77 (75-100) mmHg Base Excess 13.7 H (-2.0-2.0) O2 Saturation 94.4 (94-100) g/dF ABG pH 7.49 H (7.35-7.45) ABG HCO3 38.9 H* (22-28) ABG O2 Sat (Measured) 97.5 (95-100) % Tomas Test YES A-a Gradient 144 a/A Ratio 0.35 Hemoglobin 10.8 Carboxyhemoglobin 2.1 (0.0-6.9) % THgb Methemoglobin 1.1 L (1.4-1.5) % Temperature 37.0 C POC O2 Flow Rate 40 % Sodium 139 (137-145) mmol/L Potassium 4.0 4.0 (3.5-5.1) mmol/L Chloride 98 (98-107) mmol/L Carbon Dioxide 37 H (22-30) mmol/L Anion Gap 7.8 (5-15) MEQ/L BUN 28 H (9-20) mg/dL Creatinine 0.63 L (0.66-1.25) mg/dL Estimated GFR > 60 ML/MIN Glucose 142 H (74-106) mg/dL Calcium 8.5 (8.4-10.2) mg/dL Total Bilirubin 0.30 (0.2-1.3) mg/dL AST 30 (17-59) U/L ALT 26 (0-50) U/L Alkaline Phosphatase 52 (38-126) U/L Serum Total Protein 5.6 L (6.3-8.2) g/dL Albumin 3.1 L (3.5-5.0) g/dL Theophylline 12.1 (10-20) ug/mL Radiology Exams: Radiology Procedures Category Date Time Status CHEST 1 VIEW (PORTABLE) Routine Exams 11/11/17 07:00 Ordered Assessment/Plan (1) Pseudomonas pneumonia Current Visit: Yes Status: Acute Assessment & Plan: on levaquin and cefepime improving with severe copd exacerbation and respiratory failure that is slowly showing a little improvement today continue supportive therapies Pulmonology consulted and following as well and he is still on theophylline gtt that is therapeutic and solumedrol 100 q8h (2) Respiratory failure, acute Current Visit: Yes Status: Acute Code(s): J96.00 - ACUTE RESPIRATORY FAILURE , UNSP W HYPOXIA OR HYPERCAPNIA (3) COPD with exacerbation Current Visit: Yes Status: Acute Code(s): J44.1 - CHRONIC OBSTRUCTIVE PULMONARY DISEASE W (ACUTE) EXACERBATION
[2017-11-11] MEDS: Pepcid 20 MG PO SCH (09:11)
[2017-11-11] MEDS: PLAVIX 75 MG Tablet PO SCH (09:11)
[2017-11-11] MEDS: Protonix 40MG Tablet PO SCH (09:11)
[2017-11-11] MEDS: DALIRESP PO SCH (09:11)
[2017-11-11] MEDS: Altace 5 MG PO SCH (09:11)
[2017-11-11] MEDS: Lopressor 25MG Tab PO SCH ×2 (09:12→21:18)
[2017-11-11] MEDS: MAXIPIME 1 GM** 1 G in Sodium Chloride 100ML MINI-BAG PLUS 100 ML IV SCH ×2 (10:08→21:19)
[2017-11-11] MEDS: ENOXAPARIN SODIUM SQ SCH (10:12)
[2017-11-11] MEDS: LEVOFLOXACIN 750MG/150ML D5W 750 MG/150 ML BAG IV SCH (10:51)
[2017-11-11 12:59] LABS: Slide Review 1 YES
--- NOTE | 2017-11-11 16:55 | XRAY ---
Indication: Respiratory failure. Comparison: November 08, 2017. Portable chest unchanged again demonstrating COPD, left apical scarring, and a few incidental calcified granulomas. Heart is not enlarged. No new/acute findings. Comment: Preliminary interpretation was made by [facility]. No discrepancy.
[2017-11-12] MEDS: DUONEB 0.5-3 MG/3 ml Neb IH SCH ×7 (00:48→23:45)
[2017-11-12] MEDS: Advair Hfa 115/21 Common canister IH SCH ×3 (03:51→19:40)
[2017-11-12] MEDS: Aminophylline 500 MG/20 ML*** 500 MG in Sodium Chloride 0.9% 500 ML 500 ML IV SCH (04:46)
[2017-11-12] MEDS: solu-MEDROL 125 MG IV SCH ×3 (05:34→21:28)
[2017-11-12] MEDS: Mucomyst 200 MG/ML IH SCH ×2 (06:50→19:40)
[2017-11-12] MEDS: Ativan 2 MG/1 ML VIAL IV PRN ×3 (07:30→20:18)
[2017-11-12] MEDS: Altace 5 MG PO SCH (08:37)
[2017-11-12] MEDS: DALIRESP PO SCH (08:38)
[2017-11-12] MEDS: Lopressor 25MG Tab PO SCH ×2 (08:38→21:32)
[2017-11-12] MEDS: Protonix 40MG Tablet PO SCH (08:38)
[2017-11-12] MEDS: Pepcid 20 MG PO SCH (08:38)
[2017-11-12] MEDS: PLAVIX 75 MG Tablet PO SCH (08:38)
[2017-11-12 09:16] LABS: Granulocyte Absolute (ANC) 10.45 (1.4-6.9); Hemoglobin 12.1 gm/dl (12.5-18.0); Mean Cell Volume 85.1 fl (78-100); Mean Corpuscular Hemoglobin 25.7 pg (26-32); Mean Corpuscular Hgb Concent. 30.3 g/dl (32-36); Mean Platelet Volume 9.6 fl (6-9.5); Platelet Count 216 K/mm3 (150-450); Red Cell Distribution Width 15.1 % (11.5-14.0); White Blood Count 11.1 K/mm3 (4.0-10.5)
[2017-11-12 09:33] LABS: ALBUMIN 3.7 g/dL (3.5-5.0); ALKALINE PHOSPHATASE 69 U/L (38-126); ANION GAP 11.6 MEQ/L (5-15); BLOOD UREA NITROGEN 26 mg/dL (9-20); CHLORIDE 99 mmol/L (98-107); Calcium 8.9 mg/dL (8.4-10.2); Carbon Dioxide 34 mmol/L (22-30); Creatinine 1 0.55 mg/dL (0.66-1.25); Glucose 146 mg/dL (74-106); SGOT/AST 23 U/L (17-59); SGPT/ALT 28 U/L (0-50); SODIUM 141 mmol/L (137-145); Total Protein 6.5 g/dL (6.3-8.2)
[2017-11-12] MEDS: ENOXAPARIN SODIUM SQ SCH (09:43)
[2017-11-12] MEDS: MAXIPIME 1 GM** 1 G in Sodium Chloride 100ML MINI-BAG PLUS 100 ML IV SCH ×2 (09:46→21:33)
[2017-11-12 10:35] LABS: Lymphocytes 10 % (24-44); Monocyte 4 % (0.0-12.0); Neutrophils 86 % (36.-66.); Total Cells Counted 100
[2017-11-12 10:38] LABS: ANISOCYTOSIS 1+; Platelet Estimate NORMAL (NORMAL); Poikilocytosis 2+; Toxic Granulation 1+
[2017-11-12] MEDS: Spiriva 18 Mcg/Cap Inhaler IH SCH (11:00)
[2017-11-12] MEDS: LEVOFLOXACIN 750MG/150ML D5W 750 MG/150 ML BAG IV SCH (11:10)
[2017-11-12] MEDS: Lactated Ringers 1,000 ML IV SCH (11:14)
[2017-11-12] MEDS ORDERED: PHARMACY DOSING REQUEST MC ONE (17:33)
[2017-11-12] MEDS: DILAUDID 2 MG INJECTION IV PRN (18:57)
[2017-11-13] MEDS: Aminophylline 500 MG/20 ML*** 500 MG in Sodium Chloride 0.9% 500 ML 500 ML IV SCH (00:13)
[2017-11-13] MEDS: DUONEB 0.5-3 MG/3 ml Neb IH SCH ×5 (03:26→19:02)
[2017-11-13] MEDS: Lactated Ringers 1,000 ML IV SCH ×2 (03:36→19:35)
[2017-11-13 05:42] LABS: Granulocyte Absolute (ANC) 7.34 (1.4-6.9); Hemoglobin 10.6 gm/dl (12.5-18.0); Mean Cell Volume 85.6 fl (78-100); Mean Corpuscular Hemoglobin 25.9 pg (26-32); Mean Corpuscular Hgb Concent. 30.3 g/dl (32-36); Mean Platelet Volume 10.1 fl (6-9.5); Platelet Count 194 K/mm3 (150-450); Red Blood Count 4.09 M/mm3 (4.1-5.6); White Blood Count 8.1 K/mm3 (4.0-10.5)
[2017-11-13] MEDS: Ativan 2 MG/1 ML VIAL IV PRN ×3 (05:56→16:42)
[2017-11-13] MEDS: solu-MEDROL 125 MG IV SCH ×3 (05:56→21:14)
[2017-11-13 06:01] LABS: ALBUMIN 2.9 g/dL (3.5-5.0); ALKALINE PHOSPHATASE 53 U/L (38-126); ANION GAP 10.2 MEQ/L (5-15); BLOOD UREA NITROGEN 26 mg/dL (9-20); CHLORIDE 97 mmol/L (98-107); Calcium 8.4 mg/dL (8.4-10.2); Carbon Dioxide 36 mmol/L (22-30); Creatinine 1 0.66 mg/dL (0.66-1.25); Glucose 126 mg/dL (74-106); Potassium 4.2 mmol/L (3.5-5.1); SGOT/AST 18 U/L (17-59); SGPT/ALT 26 U/L (0-50); SODIUM 139 mmol/L (137-145); Total Protein 5.4 g/dL (6.3-8.2)
[2017-11-13 06:18] LABS: ANISOCYTOSIS 1+; Lymphocytes 1 % (24-44); Monocyte 1 % (0.0-12.0); Neutrophils 98 % (36.-66.); Poikilocytosis 1+; Polychromasia 1+; Total Cells Counted 100
[2017-11-13 06:19] LABS: Platelet Estimate NORMAL (NORMAL)
[2017-11-13] MEDS: Advair Hfa 115/21 Common canister IH SCH ×2 (07:04→19:16)
[2017-11-13] MEDS: Mucomyst 200 MG/ML IH SCH ×2 (07:04→19:01)
[2017-11-13] MEDS: Spiriva 18 Mcg/Cap Inhaler IH SCH (07:05)
[2017-11-13] MEDS: DILAUDID 2 MG INJECTION IV PRN ×3 (07:34→18:41)
[2017-11-13] MEDS: Altace 5 MG PO SCH (09:58)
[2017-11-13] MEDS: Lopressor 25MG Tab PO SCH ×2 (09:59→21:14)
[2017-11-13] MEDS: ENOXAPARIN SODIUM SQ SCH (09:59)
[2017-11-13] MEDS: Protonix 40MG Tablet PO SCH (09:59)
[2017-11-13] MEDS: Pepcid 20 MG PO SCH (09:59)
[2017-11-13] MEDS: PLAVIX 75 MG Tablet PO SCH (09:59)
[2017-11-13] MEDS: LEVOFLOXACIN 750MG/150ML D5W 750 MG/150 ML BAG IV SCH (10:10)
[2017-11-13] MEDS: DALIRESP PO SCH (10:11)
[2017-11-13] MEDS: THEOPHYLLINE ER 24HR PO SCH (11:34)
[2017-11-13] MEDS: MAXIPIME 1 GM** 1 G in Sodium Chloride 100ML MINI-BAG PLUS 100 ML IV SCH ×2 (12:45→21:13)
[2017-11-14] MEDS: DUONEB 0.5-3 MG/3 ml Neb IH SCH ×7 (00:45→23:40)
[2017-11-14] MEDS: solu-MEDROL 125 MG IV SCH (05:31)
[2017-11-14] MEDS: Mucomyst 200 MG/ML IH SCH (07:04)
[2017-11-14] MEDS: Spiriva 18 Mcg/Cap Inhaler IH SCH (07:04)
[2017-11-14] MEDS: Advair Hfa 115/21 Common canister IH SCH ×2 (07:04→19:51)
[2017-11-14] MEDS: ULTRAM 50 MG PO PRN (07:48)
[2017-11-14] MEDS: ENOXAPARIN SODIUM SQ SCH (07:48)
[2017-11-14] MEDS: Pepcid 20 MG PO SCH (07:48)
[2017-11-14] MEDS: Lopressor 25MG Tab PO SCH ×2 (07:48→22:04)
[2017-11-14] MEDS: Altace 5 MG PO SCH (07:48)
[2017-11-14] MEDS: PLAVIX 75 MG Tablet PO SCH (07:48)
[2017-11-14] MEDS: Protonix 40MG Tablet PO SCH (07:48)
[2017-11-14] MEDS: THEOPHYLLINE ER 24HR PO SCH (07:49)
[2017-11-14] MEDS: DALIRESP PO SCH (07:49)
[2017-11-14] MEDS: MAXIPIME 1 GM** 1 G in Sodium Chloride 100ML MINI-BAG PLUS 100 ML IV SCH (07:51)
--- NOTE | 2017-11-14 08:12 | CONS ---
CONSULT DATE: 11/13/2017 DICTATION STARTED HERE, SOUND GOING IN AND OUT FROM POSSIBLE CELL PHONE DICTATION? PLEASE REDICTATE. PHYSICAL EXAMINATION: ABDOMEN: Soft, nontender, obese. EXTREMITIES: Mild edema. LAB DATA AND TESTS: IMPRESSION: 1) Chronic hypercapnic respiratory failure. 2) Acute exacerbation The patient is not able to tolerate BiPAP without sedation with Ativan. I discussed at length regarding Hospice and implications. The patient and would like to go home with Hospice care and consider using CONDITION: Going home with Hospice. A very reasonable option given the history of respiratory failure, poor quality and he does not want to be intubated. In that case continue current treatment, wean him off prednisone and increase activity. Consider physical therapy and continue bronchodilators. Once he is stabilized consider sending him home with Hospice. I have requested the media planner / buyer to call Hospice for consult.
[2017-11-14] MEDS: DELTASONE 20 MG PO SCH (10:06)
[2017-11-14] MEDS: Levofloxacin 500 MG Tablet PO SCH (10:06)
[2017-11-14] MEDS: Ativan 1 MG PO PRN ×2 (10:11→15:07)
[2017-11-14] MEDS: Lactated Ringers 1,000 ML IV SCH (19:30)
[2017-11-15] MEDS: DUONEB 0.5-3 MG/3 ml Neb IH SCH ×4 (03:27→15:06)
[2017-11-15] MEDS: Advair Hfa 115/21 Common canister IH SCH (07:00)
[2017-11-15] MEDS: Spiriva 18 Mcg/Cap Inhaler IH SCH (07:06)
[2017-11-15] MEDS: Ativan 1 MG PO PRN (09:09)
[2017-11-15] MEDS: DALIRESP PO SCH (09:09)
[2017-11-15] MEDS: Protonix 40MG Tablet PO SCH (09:09)
[2017-11-15] MEDS: ENOXAPARIN SODIUM SQ SCH (09:09)
[2017-11-15] MEDS: Altace 5 MG PO SCH (09:09)
[2017-11-15] MEDS: ULTRAM 50 MG PO PRN (09:09)
[2017-11-15] MEDS: Lopressor 25MG Tab PO SCH (09:09)
[2017-11-15] MEDS: Pepcid 20 MG PO SCH (09:09)
[2017-11-15] MEDS: DELTASONE 20 MG PO SCH (09:09)
[2017-11-15] MEDS: Levofloxacin 500 MG Tablet PO SCH (09:09)
[2017-11-15] MEDS: PLAVIX 75 MG Tablet PO SCH (09:09)
[2017-11-15] MEDS ORDERED: THEODUR PO SCH (10:00)
[2017-11-15] MEDS ORDERED: THEOPHYLLINE ER 24HR PO SCH (10:00)
--- NOTE | 2017-11-15 13:35 | PCM.DCORD ---
- Discharge Discharge Date: 11/15/17 Disposition: Home, Self-Care Condition: Stable Prescriptions: New Lorazepam 1 mg [Ativan 1 MG] 1 mg PO QID PRN PRN #120 tablet PRN Reason: Anxiety Prednisone 20 mg [Deltasone 20 mg] 60 mg PO DAILY #90 tablet Levofloxacin [Levofloxacin 500 MG Tablet] 500 mg PO DAILY #5 tablet Metoprolol Tartrate 25 mg [Lopressor 25MG Tab] 25 mg PO BID #60 tab Theophylline Anhydrous [Theophylline] 1,200 mg PO DAILY #90 tab.er.24h Acetaminophen 325 mg [Tylenol 325 mg] 650 mg PO Q4H PRN PRN tablet PRN Reason: Pain And/Or Fever Continue Albuterol 2.5 mg/3 ml Neb [Proventil 2.5 mg/3 ml Neb] 1 vial IH Q6H Prednisone 10 mg [Deltasone 10 mg] 10 mg PO DAILY Roflumilast [Daliresp] 500 mcg PO DAILY Ipratropium/Albuterol Sulfate [Combivent Inhaler] 2 puffs IH BID Fluticasone/Vilanterol [Breo Ellipta 100-25 Mcg INH] 1 puff IH DAILY Alendronate Sodium 70 mg [Fosamax 70 MG] 70 mg PO WEEKLY Atorvastatin Calcium 80 mg DAILY Aspirin 81 mg DAILY Ramipril 5 mg [Altace 5 MG] 5 mg DAILY PANTOPRAZOLE 40 mg Tablet [Protonix 40MG Tablet] 40 mg DAILY Clopidogrel Bisulfate 75 mg [PLAVIX 75 MG Tablet] 75 mg DAILY Tiotropium [place] Inhaler [Spiriva 18 Mcg/Cap Inhaler] 1 puff IH DAILY Tamsulosin HCl 0.4 mg [Flomax 0.4 MG] 0.4 mg PO DAILY Famotidine 20 mg [Pepcid 20 MG] 20 mg PO DAILY Escitalopram Oxalate 10 mg [Lexapro 10 MG] 5 mg PO DAILY Tramadol HCl 50 mg [Ultram 50 mg] 50 mg PO Q6HPRN PRN PRN Reason: Pain Follow up with: LUL CARL [Primary Care Provider] - 11/22/17 1:15 pm
[2017-11-15 16:43] VITALS: BP 107/78; PULSE 111; O2SAT 94
== END 2017-11-15 17:53 | disposition hospice, home (50) | DRG 190 ==
LOC: ED 04:28 → MED SURG 07:44 → OBSVTOIN 07:44 → INTOOBSV 11-07 08:00 → ICU 11-07 13:28 → MED SURG 11-07 13:28
PROVIDERS: ADMIT Family Medicine; ATTEND Family Medicine
DX: J44.1 Chronic obstructive pulmonary disease with (acute) exacerbation (principal); J15.1 Pneumonia due to Pseudomonas; J96.00 Acute respiratory failure, unspecified whether with hypoxia or hypercapnia; F19.20 Other psychoactive substance dependence, uncomplicated; J96.11 Chronic respiratory failure with hypoxia; J96.12 Chronic respiratory failure with hypercapnia; Z99.81 Dependence on supplemental oxygen; K21.9 Gastro-esophageal reflux disease without esophagitis; I25.10 Atherosclerotic heart disease of native coronary artery without angina pectoris; E78.5 Hyperlipidemia, unspecified; Z79.899 Other long term (current) drug therapy; I10 Essential (primary) hypertension; F41.9 Anxiety disorder, unspecified; M81.0 Age-related osteoporosis without current pathological fracture; Z72.0 Tobacco use
CPT/HCPCS: 36415; 36600; 71045; 80048; 80053; 80198; 80307; 81000; 82375; 82803; 83605; 83735; 83880; 84484; 85025; 85379; 86308; 87040; 87070; 87077; 87086; 87186; 87430; 87631; 93005; 93041; 93268; 94002; 94003; 94150; 94640; 94760; 96360; 96361; 96365; 96368; 96374; 99285; G0378; J0280; J0456; J0692; J0696; J1170; J1650; J1956; J2060; J2930; J3475; A9270-GY